=== PATIENT | male | born 1935 | race Caucasian/White ===

== ENCOUNTER 2017-09-18 20:31 | Emergency (ER) | payer MEDICARE, OTHER ==
[~2017-09-18] VITALS: Ht 167.6 cm; Wt 68.0 kg
--- NOTE | 2017-09-18 20:47 | NUR ---
PT PRESENTS TO ER STATING HE HAS NOT HAD A BM IN 3-4 DAYS AND C/O ABD PAIN. DENIES N/V.
--- NOTE | 2017-09-18 21:23 | NUR ---
RADIOLOGY AT BEDSIDE FOR XRAY
--- NOTE | 2017-09-18 22:58 | NUR ---
CALLED RADIOLOGY REGARDING PENDING XRAY RESULTS.
[2017-09-19] MEDS ORDERED: MAGNESIUM CITRATE 296 ML BOTTLE PO ONE
[2017-09-19] MEDS ORDERED: MAGNESIUM CITRATE 296 ML BOTTLE ONE (00:05)
--- NOTE | 2017-09-19 00:18 | NUR ---
Patient discharged to home in stable conditon. Written and verbal after care instructions given. Patient verbalizes understanding of instructions. Taxi service called to provide patient transportation back to his home. No distress noted.
[2017-09-19 00:24] VITALS: BP 138/86
== END 2017-09-19 00:25 | disposition home or self-care (01) ==
LOC: ER 20:34
DX: K59.00 Constipation, unspecified (principal)
CPT/HCPCS: 74022; 99284; A4663

== ENCOUNTER 2017-09-21 14:44 | Emergency (ER) | payer MEDICARE, OTHER ==
[~2017-09-21] VITALS: Ht 167.6 cm; Wt 68.0 kg
[2017-09-21] MEDS ORDERED: DIATR MEGLU/DIATRIZOATE SODIUM 120 ML BOTTLE ONE (15:17)
[2017-09-21 15:24] LABS: BASOPHILS # (AUTO) 0.1 K/uL (0.0-8.0); BASOPHILS % (AUTO) 0.7 % (0.0-2.0); EOSINOPHILS # (AUTO) 0.1 K/uL (0.0-0.7); EOSINOPHILS % (AUTO) 0.7 % (0.0-7.0); HEMATOCRIT 43.7 % (36.7-47.1); HEMOGLOBIN 14.8 g/dL (12.5-16.3); LYMPHOCYTES # (AUTO) 1.6 K/uL (20.0-40.0); LYMPHOCYTES % (AUTO) 15.5 % (20.5-51.5); MEAN CORPUSCULAR HEMOGLOBIN 31.7 uug (23.8-33.4); MEAN CORPUSCULAR HGB CONC 34 g/dL (32.5-36.3); MEAN CORPUSCULAR VOLUME 93.6 fL (73.0-96.2); MONOCYTES # (AUTO) 0.7 K/uL (2.0-10.0); MONOCYTES % (AUTO) 7.1 % (0.0-11.0); NEUTROPHILS # (AUTO) 7.7 K/uL (1.8-8.9); PLATELET COUNT (AUTO) 333 K/uL (152-348); RED BLOOD CELL COUNT(AUTO) 4.67 MIL/uL (4.06-5.63); WHITE BLOOD COUNT (AUTO) 10.1 K/uL (3.6-10.2)
[2017-09-21 15:34] LABS: CARBON DIOXIDE 25 mmol/L (21-32); CHLORIDE 102 mmol/L (98-107); CREATININE 1.1 mg/dL (0.6-1.3); GLUCOSE 98 mg/dL (74-106); POTASSIUM 4.1 mmol/L (3.5-5.1); UREA NITROGEN, BLOOD 17 mg/dL (7-18)
[2017-09-21 15:40] LABS: ALANINE AMINOTRANSFERASE 23 U/L (16-63); ALKALINE PHOSPHATASE 60 U/L (50-136); ASPARTATE AMINOTRANSFERASE 18 U/L (15-37); BILIRUBIN,DIRECT 0.3 mg/dL (0.0-0.2); BILIRUBIN,TOTAL 1.1 mg/dL (0.2-1.0); LIPASE 161 U/L (73-393); TOTAL PROTEIN, SERUM 7.4 g/dL (6.4-8.2)
[2017-09-21] MEDS ORDERED: IOHEXOL 300MG/ML 100 ML INFUS..BTL ONE (15:59)
[2017-09-21] MEDS ORDERED: SWABABLE VALVE TRANSFER SET EA MC ONE (15:59)
[2017-09-21] MEDS ORDERED: NORMAL SALINE FLUSH 10 ML DISP.SYRIN ONE (15:59)
[2017-09-21] MEDS ORDERED: IV NORMAL SALINE 100 ML ONE (15:59)
--- NOTE | 2017-09-21 17:01 | NUR ---
assissted pt to bathroom. pt had bm
--- NOTE | 2017-09-21 17:27 | NUR ---
Patient discharged to home in stable conditon. Written and verbal after care instructions given. Patient verbalizes understanding of instructions.pt walks in steady gait, pt own friend arranged for uber to pick the pt.
[2017-09-21 17:28] VITALS: BP 129/81
== END 2017-09-21 17:29 | disposition home or self-care (01) ==
LOC: ER 14:46
DX: K59.00 Constipation, unspecified (principal)
CPT/HCPCS: 36415; 70030-TC; 83690; 85025; 85730; A4663; J3490; J7030; Q9963; Q9967

== ENCOUNTER 2018-04-22 08:53 | Emergency (ER) | payer MEDICARE, BC, OTHER ==
[~2018-04-22] VITALS: Ht 172.7 cm; Wt 74.8 kg
[2018-04-22] MEDS ORDERED: TRAZ-214 PO (09:12)
[2018-04-22] MEDS ORDERED: ZALE10CA PO (09:12)
[2018-04-22] MEDS ORDERED: ASPI81TA31 PO (09:12)
[2018-04-22 09:21] LABS: BASOPHILS # (AUTO) 0.1 K/uL (0.0-8.0); BASOPHILS % (AUTO) 0.9 % (0.0-2.0); EOSINOPHILS # (AUTO) 0.1 K/uL (0.0-0.7); EOSINOPHILS % (AUTO) 1.5 % (0.0-7.0); HEMATOCRIT 41.2 % (36.7-47.1); LYMPHOCYTES # (AUTO) 1.7 K/uL (20.0-40.0); LYMPHOCYTES % (AUTO) 22.2 % (20.5-51.5); MEAN CORPUSCULAR HEMOGLOBIN 31.6 uug (23.8-33.4); MEAN CORPUSCULAR HGB CONC 34 g/dL (32.5-36.3); MEAN CORPUSCULAR VOLUME 92.8 fL (73.0-96.2); MONOCYTES # (AUTO) 0.9 K/uL (2.0-10.0); MONOCYTES % (AUTO) 12.1 % (0.0-11.0); NEUTROPHILS # (AUTO) 4.8 K/uL (1.8-8.9); NEUTROPHILS % (AUTO) 63.3 % (38.5-71.5); PLATELET COUNT (AUTO) 268 K/uL (152-348); RED BLOOD CELL COUNT(AUTO) 4.44 MIL/uL (4.06-5.63); WHITE BLOOD COUNT (AUTO) 7.6 K/uL (3.6-10.2)
[2018-04-22 09:28] LABS: CARBON DIOXIDE 30 mmol/L (21-32); CHLORIDE 103 mmol/L (98-107); CREATININE 1.1 mg/dL (0.6-1.3); GLUCOSE 105 mg/dL (74-106); POTASSIUM 4.5 mmol/L (3.5-5.1); UREA NITROGEN, BLOOD 15 mg/dL (7-18)
[2018-04-22 09:34] LABS: ALANINE AMINOTRANSFERASE 16 U/L (16-63); ALKALINE PHOSPHATASE 62 U/L (50-136); ASPARTATE AMINOTRANSFERASE 14 U/L (15-37); BILIRUBIN,DIRECT 0.2 mg/dL (0.0-0.2); BILIRUBIN,TOTAL 0.6 mg/dL (0.2-1.0); TOTAL PROTEIN, SERUM 7.4 g/dL (6.4-8.2)
--- NOTE | 2018-04-22 10:37 | NUR ---
Patient discharged to home in stable conditon. Written and verbal after care instructions given. Patient verbalizes understanding of instructions.pt walks in steady gait. pt accompanied by close friend, pt not driving.
[2018-04-22 10:38] VITALS: BP 141/71
== END 2018-04-22 10:39 | disposition home or self-care (01) ==
LOC: ER 08:53
DX: S13.4XXA Sprain of ligaments of cervical spine, initial encounter (principal); S00.01XA Abrasion of scalp, initial encounter; I25.10 Atherosclerotic heart disease of native coronary artery without angina pectoris; I50.9 Heart failure, unspecified; I25.2 Old myocardial infarction; E78.5 Hyperlipidemia, unspecified; F17.200 Nicotine dependence, unspecified, uncomplicated; Z79.82 Long term (current) use of aspirin; Z79.899 Other long term (current) drug therapy; W19.XXXA Unspecified fall, initial encounter; Y93.89 Activity, other specified; Y92.89 Other specified places as the place of occurrence of the external cause; Y99.8 Other external cause status
CPT/HCPCS: 36415; 70030-TC; 70450; 71045; 72125; 84153; 84443; 85025; 85730; 93005; A4663

== ENCOUNTER 2018-07-02 19:36 | Emergency (ER) | payer MEDICARE, OTHER ==
[~2018-07-02] VITALS: Ht 167.6 cm; Wt 68.0 kg
[~2018-07-02 19:36] MED LIST: ASPI81TA31 PO; TRAZ-214 PO; ZALE10CA PO
--- NOTE | 2018-07-02 19:57 | NUR ---
Xray at bedside.
[2018-07-02] MEDS ORDERED: IV NORMAL SALINE 1000 ML BAG IV ONE (20:00)
[2018-07-02 20:12] LABS: BASOPHILS # (AUTO) 0.1 K/uL (0.0-8.0); BASOPHILS % (AUTO) 0.6 % (0.0-2.0); EOSINOPHILS % (AUTO) 0.3 % (0.0-7.0); HEMATOCRIT 43.2 % (36.7-47.1); HEMOGLOBIN 14.7 g/dL (12.5-16.3); LYMPHOCYTES # (AUTO) 0.9 K/uL (20.0-40.0); LYMPHOCYTES % (AUTO) 8.7 % (20.5-51.5); MEAN CORPUSCULAR HEMOGLOBIN 31.1 uug (23.8-33.4); MEAN CORPUSCULAR HGB CONC 34 g/dL (32.5-36.3); MEAN CORPUSCULAR VOLUME 91.3 fL (73.0-96.2); MONOCYTES # (AUTO) 0.6 K/uL (2.0-10.0); MONOCYTES % (AUTO) 5.8 % (0.0-11.0); NEUTROPHILS # (AUTO) 8.7 K/uL (1.8-8.9); NEUTROPHILS % (AUTO) 84.6 % (38.5-71.5); PLATELET COUNT (AUTO) 292 K/uL (152-348); RED BLOOD CELL COUNT(AUTO) 4.73 MIL/uL (4.06-5.63); WHITE BLOOD COUNT (AUTO) 10.3 K/uL (3.6-10.2)
[2018-07-02 20:21] LABS: CARBON DIOXIDE 23 mmol/L (21-32); CHLORIDE 103 mmol/L (98-107); GLUCOSE 126 mg/dL (74-106); UREA NITROGEN, BLOOD 13 mg/dL (7-18)
[2018-07-02 20:27] LABS: ALANINE AMINOTRANSFERASE 29 U/L (16-63); ALKALINE PHOSPHATASE 58 U/L (50-136); ASPARTATE AMINOTRANSFERASE 39 U/L (15-37); BILIRUBIN,DIRECT 0.5 mg/dL (0.0-0.2); BILIRUBIN,TOTAL 1.5 mg/dL (0.2-1.0)
[2018-07-02] MEDS ORDERED: POTASSIUM BICARBONATE/CIT AC 25 MEQ TABLET.EFF PO ONE (20:30)
[2018-07-02] MEDS ORDERED: POTASSIUM BICARBONATE/CIT AC 25 MEQ TABLET.EFF ONE (20:33)
[2018-07-02 20:44] LABS: CREATINE KINASE, TOTAL 757 U/L (39-308)
--- NOTE | 2018-07-02 20:55 | NUR ---
Pt out of ER for CT.
--- NOTE | 2018-07-02 21:05 | NUR ---
Padmaja hicks in ED - 07/02/18 at 2214 by ARACELI Pt back to ER from CT.
[2018-07-02] MEDS ORDERED: LEVETIRACETAM IV 500 MG in IV DEXTROSE 5% 100 ML IV ONE (21:15)
[2018-07-02] MEDS ORDERED: LEVETIRACETAM 500 MG/5 ML VIAL IV ONE (21:18)
--- NOTE | 2018-07-02 21:18 | NUR ---
Pt back to ER from CT.
--- NOTE | 2018-07-02 21:18 | NUR ---
CALLED [facility] SPOKE WITH GREGORY. FAXED FACESHEET AND REPORT OF CT SCAN REQUESTED
--- NOTE | 2018-07-02 22:00 | NUR ---
IV Levetiracetam finished infusing @2200.
--- NOTE | 2018-07-02 22:00 | NUR ---
Dr. Lua spoke with Dr. Munroe, Neurologist.
--- NOTE | 2018-07-02 22:06 | NUR ---
Spoke with Sanjuana of [facility]. Pt accepted for transfer, accepting MD Dr. Anaya, going to room 8849.
--- NOTE | 2018-07-02 22:08 | NUR ---
Called [facility]arda w/ [facility] trip#[id number] ETA [id number] [address] [employer] being dispatched,
--- NOTE | 2018-07-02 22:27 | NUR ---
Report given to August MORGAN [facility].
--- NOTE | 2018-07-02 22:54 | NUR ---
Marleen arrived to ER to transport pt to [facility]. Report, summary, and diagnostics given EMT.
--- NOTE | 2018-07-02 23:06 | NUR ---
Pt out of ER via [facility] to transport pt to [facility]. Report, summary, and diagnostics with EMT.
== END 2018-07-02 23:10 | disposition short-term general hospital (02) ==
LOC: ER 19:36
DX: S06.5X9A Traumatic subdural hemorrhage with loss of consciousness of unspecified duration, initial encounter (principal); I25.10 Atherosclerotic heart disease of native coronary artery without angina pectoris; I25.2 Old myocardial infarction; I50.9 Heart failure, unspecified; E78.5 Hyperlipidemia, unspecified; Z79.82 Long term (current) use of aspirin; Z79.899 Other long term (current) drug therapy; W19.XXXA Unspecified fall, initial encounter; Y93.89 Activity, other specified; Y92.89 Other specified places as the place of occurrence of the external cause; Y99.8 Other external cause status
CPT/HCPCS: 36415; 70450; 71045; 72125; 80048; 80076; 82550; 82962; 83735; 83880; 84484; 85025; 85730; 93005; 96361; 96365; 99291; J1953; J7060; 70030-TC; A4663; J7030

== ENCOUNTER 2018-08-22 19:33 | Emergency (ER) | payer MEDICARE, BC ==
[~2018-08-22] VITALS: Ht 170.2 cm; Wt 54.9 kg
[2018-08-22 20:04] LABS: BASOPHILS # (AUTO) 0.1 K/uL (0.0-8.0); EOSINOPHILS # (AUTO) 0.2 K/uL (0.0-0.7); EOSINOPHILS % (AUTO) 2.6 % (0.0-7.0); HEMATOCRIT 34.9 % (36.7-47.1); HEMOGLOBIN 11.4 g/dL (12.5-16.3); LYMPHOCYTES # (AUTO) 1.7 K/uL (20.0-40.0); LYMPHOCYTES % (AUTO) 18.8 % (20.5-51.5); MEAN CORPUSCULAR HEMOGLOBIN 29.2 uug (23.8-33.4); MEAN CORPUSCULAR HGB CONC 33 g/dL (32.5-36.3); MEAN CORPUSCULAR VOLUME 89.3 fL (73.0-96.2); MONOCYTES # (AUTO) 0.7 K/uL (2.0-10.0); MONOCYTES % (AUTO) 7.9 % (0.0-11.0); NEUTROPHILS # (AUTO) 6.4 K/uL (1.8-8.9); NEUTROPHILS % (AUTO) 69.7 % (38.5-71.5); PLATELET COUNT (AUTO) 347 K/uL (152-348); RED BLOOD CELL COUNT(AUTO) 3.91 MIL/uL (4.06-5.63); WHITE BLOOD COUNT (AUTO) 9.2 K/uL (3.6-10.2)
--- NOTE | 2018-08-22 20:04 | NUR ---
Patient out of unit for ct scan of abdominal via gurny
[2018-08-22 20:11] LABS: CARBON DIOXIDE 30 mmol/L (21-32); CHLORIDE 103 mmol/L (98-107); CREATININE 0.9 mg/dL (0.6-1.3); GLUCOSE 101 mg/dL (74-106); POTASSIUM 3.5 mmol/L (3.5-5.1); UREA NITROGEN, BLOOD 20 mg/dL (7-18)
[2018-08-22 20:17] LABS: ALANINE AMINOTRANSFERASE 23 U/L (16-63); ALKALINE PHOSPHATASE 83 U/L (50-136); ASPARTATE AMINOTRANSFERASE 15 U/L (15-37); BILIRUBIN,DIRECT 0.1 mg/dL (0.0-0.2); BILIRUBIN,TOTAL 0.6 mg/dL (0.2-1.0); LIPASE 140 U/L (73-393); TOTAL PROTEIN, SERUM 7.6 g/dL (6.4-8.2)
--- NOTE | 2018-08-22 20:24 | NUR ---
Patient back from ct scan with no distress noted
[2018-08-22] MEDS ORDERED: LIDOCAINE 2% (UROJET) 10 ML JELLY MM ONE ×2 (20:27→20:30)
[2018-08-22] MEDS ORDERED: FAMO20TA8 PO (20:37)
[2018-08-22] MEDS ORDERED: SPIR25TA6 PO (20:37)
[2018-08-22] MEDS ORDERED: POLY17PO4 PO (20:37)
[2018-08-22] MEDS ORDERED: GABA250S4 PO ×2 (20:37→20:41)
[2018-08-22] MEDS ORDERED: ERGO500040 PO (20:37)
[2018-08-22] MEDS ORDERED: MELA3TAB PO (20:37)
[2018-08-22] MEDS ORDERED: QUET25TA PO ×2 (20:37→20:41)
[2018-08-22] MEDS ORDERED: MEMA10TA PO (20:37)
[2018-08-22] MEDS ORDERED: ATOR40TA PO (20:37)
[2018-08-22] MEDS ORDERED: CARV3.122 PO (20:37)
[2018-08-22] MEDS ORDERED: LOSA25TA3 PO (20:37)
[2018-08-22] MEDS ORDERED: TAMS-3 PO (20:37)
[2018-08-22] MEDS ORDERED: LACO150T2 PO (20:37)
[2018-08-22] MEDS ORDERED: ACET-73 PO (20:41)
[2018-08-22] MEDS ORDERED: GUAI100S9 PO (20:41)
[2018-08-22 20:46] LABS: *BILIRUBIN,URIN NEGATIVE (NEGATIVE); *BLOOD, URINE 2+ (NEGATIVE); *CLARITY,URINE SLIGHTLY CLOUDY (CLEAR); *COLOR,URINE YELLOW (YELLOW); *KETONES,URINE TRACE (NEGATIVE); *UROBILINOGEN,URINE 0.2 E.U./dl (NORMAL); LEUKOCYTE ESTERASE ,URINE 1+ (NEGATIVE); NITRITE, URINE NEGATIVE (NEGATIVE); PH,URINE 5.5 (5.0-8.0); UGLUCOSE NEGATIVE (NEGATIVE)
[2018-08-22 20:54] LABS: WBC,URINE 80-100 /HPF (0-3); YEAST,URINE MODERATE /HPF (NONE SEEN)
[2018-08-22 20:55] LABS: MUCUS,URINE MANY /LPF (0-FEW)
--- NOTE | 2018-08-22 21:15 | NUR ---
Drained 1500ML of dark urine from oviedo cath.
[2018-08-22] MEDS ORDERED: CEFTRIAXONE 1 G in IV DEXTROSE 5% 50 ML IV ONE (21:30)
[2018-08-22] MEDS ORDERED: CEFTRIAXONE 1 G VIAL ONE (21:36)
[2018-08-22] MEDS ORDERED: TRAZODONE 50 MG TABLET PO ONE (22:45)
[2018-08-22] MEDS ORDERED: TRAZODONE 100 MG TABLET ONE (23:04)
--- NOTE | 2018-08-22 23:15 | NUR ---
Pt. transferred from , assumed care of pt.,
[2018-08-23] MEDS ORDERED: IV D5 1/2 NS 1000 ML 1,000 ML IV ONE (00:15)
--- NOTE | 2018-08-23 00:27 | NUR ---
Pt. resting in bed w/ eyes open, bed in low position, bed alarm on, side rails up, IV fluids in fusing w/o difficulty, no s/s infiltration/phlebitis, NAD
--- NOTE | 2018-08-23 01:10 | NUR ---
Pt. manually removed IV catheter from R AC, no significant external hemorrhage, ecchymosis or hematoma noted,
--- NOTE | 2018-08-23 01:11 | NUR ---
discontinued IV fluid order after pt. manually removed IV catheter, IV stop time 0114
--- NOTE | 2018-08-23 01:24 | NUR ---
Pt. resting in bed w/ eyes closed, bed in low position, monitoring from nurse station, bed alarm active, all neds met, NAD
--- NOTE | 2018-08-23 03:20 | NUR ---
1500cc dark yellow urine removed from oviedo,
--- NOTE | 2018-08-23 03:25 | NUR ---
Pt. taken off unit by [employer]. tech. via stretcher for CT,
--- NOTE | 2018-08-23 03:38 | NUR ---
Pt. back from CT,
[2018-08-23] MEDS ORDERED: IV NORMAL SALINE 250 ML BAG IV ONE (05:15)
--- NOTE | 2018-08-23 05:15 | NUR ---
20 gauge IV started on L AC
--- NOTE | 2018-08-23 05:19 | NUR ---
D5 1/2NS restarted per MD order at 100cc/hour,
--- NOTE | 2018-08-23 05:37 | NUR ---
Called [facility] for transfer, faxed face sheet to [phone]
--- NOTE | 2018-08-23 05:38 | NUR ---
IV fluids infusing - no s/s infiltration/phlebitis,
--- NOTE | 2018-08-23 06:43 | NUR ---
Pt. had large loose BM on bedside commode, pt. cleaned/changed/placed in new gown and put back in bed,
--- NOTE | 2018-08-23 07:07 | NUR ---
Report given to Maritza MORGAN,
--- NOTE | 2018-08-23 07:07 | NUR ---
recieved pt in bed, pt refuses to have any bf at this point. pt denies any pain or distress at this point.
[2018-08-23] MEDS ORDERED: MAGNESIUM CITRATE 296 ML BOTTLE ONE (07:12)
[2018-08-23] MEDS ORDERED: MAGNESIUM CITRATE 296 ML BOTTLE PO ONE (07:15)
--- NOTE | 2018-08-23 10:20 | NUR ---
PT TRYING TO SIT AT THE BE, ASSISSTED PT. PT SAYS THAT WANTS TO GO HOME. COMFORT MEASURES PROVIDED. PT REFUSES TO EAT ANYTHING AT THIS TIME. Addendum: 08/23/18 at 1041 by ZOYA PUT THE PT BACK TO BED.
--- NOTE | 2018-08-23 10:41 | NUR ---
PT RESTING, EYES CLOSED AT THIS TIME.
--- NOTE | 2018-08-23 11:50 | NUR ---
I called [facility] transfer center for update. I spoke with Jai who stated the patient has been accepted but they are waiting for a bed to be available. Per Jai they will call us as soon there is a bed available.
--- NOTE | 2018-08-23 12:15 | NUR ---
chopped food provided for pt. pt eating with good apetite. Addendum: 08/23/18 at 1457 by ZOYA pt had a cup of mashed potatoes with some chopped vegetable and chicken.
[2018-08-23] MEDS ORDERED: CEFTRIAXONE 1 G in IV DEXTROSE 5% 50 ML IV ONE (14:00)
[2018-08-23] MEDS ORDERED: CEFTRIAXONE 1 G VIAL ONE (14:34)
[2018-08-23] MEDS ORDERED: LIDOCAINE HCL 1% 20 ML VIAL ONE (14:37)
[2018-08-23] MEDS ORDERED: CEFTRIAXONE 500 MG VIAL IM ONE (15:15)
--- NOTE | 2018-08-23 16:07 | NUR ---
Patient discharged to home via ambulance in stable conditon. Written and verbal after care instructions given. Report was given to patient's facility. Patient verbalizes understanding of instructions.
[2018-08-23 16:08] VITALS: BP 133/71
== END 2018-08-23 16:09 | disposition home or self-care (01) ==
LOC: ER 19:33
DX: N39.0 Urinary tract infection, site not specified (principal); G93.40 Encephalopathy, unspecified; K56.699 Other intestinal obstruction unspecified as to partial versus complete obstruction; R33.9 Retention of urine, unspecified; I25.10 Atherosclerotic heart disease of native coronary artery without angina pectoris; I50.9 Heart failure, unspecified; I25.2 Old myocardial infarction; E78.5 Hyperlipidemia, unspecified; G43.909 Migraine, unspecified, not intractable, without status migrainosus; Z87.891 Personal history of nicotine dependence; Z79.2 Long term (current) use of antibiotics; Z79.899 Other long term (current) drug therapy
CPT/HCPCS: 36415; 51702; 74176 ×2; 80048; 80076; 81000; 81001; 83690; 84484; 85025; 85730; 87086; 87106; 93005; 96372; 96374; 99284; J0696 ×2; J3490 ×2; J7060; 70030-TC; A4663; J7050

== ENCOUNTER 2018-09-02 17:06 | Inpatient (IN) | payer MEDICARE, BC ==
[~2018-09-02] VITALS: Ht 170.2 cm; Wt 58.5 kg
[~2018-09-02 17:06] MED LIST changes: +ACET-73 PO; +ATOR40TA PO; +CARV3.122 PO; +ERGO500040 PO; +FAMO20TA8 PO; +GABA250S4 PO; +GUAI100S9 PO; +LACO150T2 PO; +LOSA25TA3 PO; +MELA3TAB PO; +MEMA10TA PO; +POLY17PO4 PO; +QUET25TA PO; +SPIR25TA6 PO; +TAMS-3 PO
[2018-09-02 17:25] LABS: BASOPHILS % (AUTO) 0.5 % (0.0-2.0); EOSINOPHILS # (AUTO) 0.3 K/uL (0.0-0.7); EOSINOPHILS % (AUTO) 3.3 % (0.0-7.0); HEMATOCRIT 34.2 % (36.7-47.1); HEMOGLOBIN 11.2 g/dL (12.5-16.3); LYMPHOCYTES # (AUTO) 2.3 K/uL (20.0-40.0); LYMPHOCYTES % (AUTO) 27.7 % (20.5-51.5); MEAN CORPUSCULAR HEMOGLOBIN 29.5 uug (23.8-33.4); MEAN CORPUSCULAR HGB CONC 33 g/dL (32.5-36.3); MONOCYTES # (AUTO) 0.7 K/uL (2.0-10.0); NEUTROPHILS # (AUTO) 4.9 K/uL (1.8-8.9); NEUTROPHILS % (AUTO) 59.5 % (38.5-71.5); PLATELET COUNT (AUTO) 343 K/uL (152-348); WHITE BLOOD COUNT (AUTO) 8.1 K/uL (3.6-10.2)
[2018-09-02 17:33] LABS: CARBON DIOXIDE 31 mmol/L (21-32); CHLORIDE 107 mmol/L (98-107); CREATININE 0.9 mg/dL (0.6-1.3); GLUCOSE 111 mg/dL (74-106); POTASSIUM 3.3 mmol/L (3.5-5.1); UREA NITROGEN, BLOOD 15 mg/dL (7-18)
[2018-09-02 17:39] LABS: ALANINE AMINOTRANSFERASE 17 U/L (16-63); ALKALINE PHOSPHATASE 86 U/L (50-136); ASPARTATE AMINOTRANSFERASE 12 U/L (15-37); BILIRUBIN,DIRECT 0.1 mg/dL (0.0-0.2); BILIRUBIN,TOTAL 0.3 mg/dL (0.2-1.0); TOTAL PROTEIN, SERUM 7.1 g/dL (6.4-8.2)
[2018-09-02 17:49] LABS: *BILIRUBIN,URIN NEGATIVE (NEGATIVE); *BLOOD, URINE 2+ (NEGATIVE); *CLARITY,URINE CLOUDY (CLEAR); *COLOR,URINE YELLOW (YELLOW); *KETONES,URINE TRACE (NEGATIVE); *UROBILINOGEN,URINE 0.2 E.U./dl (NORMAL); LEUKOCYTE ESTERASE ,URINE 1+ (NEGATIVE); NITRITE, URINE NEGATIVE (NEGATIVE); PH,URINE 5.5 (5.0-8.0); UGLUCOSE NEGATIVE (NEGATIVE)
[2018-09-02] MEDS ORDERED: NYST15CR TP (17:52)
[2018-09-02] MEDS ORDERED: MULT-213 PO (17:52)
[2018-09-02] MEDS ORDERED: DONE10TA44 PO (17:52)
[2018-09-02] MEDS ORDERED: ACET325T53 PO ×2 (17:52)
[2018-09-02] MEDS ORDERED: TRAZ-182 PO (17:52)
[2018-09-02 18:01] LABS: BACTERIA,URINE MANY /HPF (NONE SEEN); RBC,URINE 20-50 /HPF (0-3); SQUAMOUS EPITHELIAL CELL,UR FEW /HPF (NONE SEEN); WBC,URINE 80-100 /HPF (0-3)
[2018-09-02 18:03] LABS: YEAST,URINE FEW /HPF (NONE SEEN)
[2018-09-02] MEDS ORDERED: CEFTRIAXONE 1 G in IV DEXTROSE 5% 50 ML IV ONE (18:30)
[2018-09-02] MEDS ORDERED: CEFTRIAXONE 1 G VIAL ONE (18:39)
--- NOTE | 2018-09-02 19:07 | NUR ---
ASSUMED CARE OF PATIENT. NO ACUTE DISTRESS NOTED. VSS
--- NOTE | 2018-09-02 19:34 | NUR ---
REPORT GIVEN TO ELSY MORGAN ON MED SURG
--- NOTE | 2018-09-02 20:00 | NUR ---
patient is on the floor. arrived on a gurney from ER. Agitated, delusional, verbally abusive, screaming, persecutory delusions, violent towards staff, kicking, hitting, and biting, pulling on the Mills, tries to remove IV line. Sitter was brought in for safety. Will attempt to assess later.
[2018-09-02] MEDS ORDERED: MORPHINE SULFATE 2 MG/1 ML DISP.SYRIN IV PRN (20:30)
[2018-09-02] MEDS ORDERED: ACETAMINOPHEN 325 MG TABLET PO PRN ×2 (20:30)
[2018-09-02] MEDS ORDERED: ALBUTEROL SULFATE 2.5 MG/3 ML NEBU NEB PRN (20:30)
[2018-09-02] MEDS ORDERED: ONDANSETRON 4 MG/2 ML VIAL IV PRN (20:30)
[2018-09-02] MEDS ORDERED: TAMSULOSIN HCL 0.4 MG CAP.SR.24H PO SCH (21:00)
[2018-09-02] MEDS ORDERED: FLUCONAZOLE 200 MG/NS 100ML IV 100 MG in PREMIXED 1 EACH IV SCH (21:00)
[2018-09-02] MEDS: ZIPRASIDONE MESYLATE 20 MG VIAL IM PRN (21:03)
--- NOTE | 2018-09-02 21:08 | NUR ---
patient continues to be agitated, tamika towards staff, kicking, hitting, and biting the nurses, attempted to pull his Mills 3 times . Geodon 3mg given IM in the right thigh. Sitter is at bedside.
[2018-09-02] MEDS: LACOSAMIDE 50 MG TABLET PO SCH (21:45)
[2018-09-02] MEDS: ATORVASTATIN 40 MG TABLET PO SCH (22:00)
--- NOTE | 2018-09-02 23:00 | NUR ---
patient is more calm and cooperative. Allowed to be placed on monitor and connected to IV. Keppra and Diflucan will be given now.
[2018-09-02] MEDS: DEXTROSE 5% IV SCH (23:06)
[2018-09-02] MEDS: LEVETIRACETAM IV SCH (23:06)
[2018-09-02] MEDS: MELATONIN 3 MG TABLET PO SCH (23:19)
[2018-09-02] MEDS: TRAZODONE 50 MG TABLET PO SCH (23:20)
--- NOTE | 2018-09-02 23:46 | NUR ---
Keppra given IV, patient refuses to take oral meds, Diflucan IV is infusing, sitter at bedside. patient is dozing, no acute distress noted. Comfort and safety provided.
[2018-09-03] MEDS: POTASSIUM CHLORIDE 20 MEQ in IV D5/ 0.9% NACL 1,000 ML IV PRN ×2 (01:52→17:21)
--- NOTE | 2018-09-03 04:00 | NUR ---
patient is sleeping, arouses easily to name, calm, cooperative with care, denies pain. Mills was emptied, 150 ml of dark odorous urine. Sitter at bedside. No seizures were observed.
[2018-09-03 06:41] LABS: BASOPHILS % (AUTO) 0.6 % (0.0-2.0); EOSINOPHILS # (AUTO) 0.2 K/uL (0.0-0.7); EOSINOPHILS % (AUTO) 3.6 % (0.0-7.0); HEMATOCRIT 32.1 % (36.7-47.1); HEMOGLOBIN 10.7 g/dL (12.5-16.3); LYMPHOCYTES # (AUTO) 2.1 K/uL (20.0-40.0); LYMPHOCYTES % (AUTO) 31.8 % (20.5-51.5); MEAN CORPUSCULAR HEMOGLOBIN 29.8 uug (23.8-33.4); MEAN CORPUSCULAR HGB CONC 33 g/dL (32.5-36.3); MEAN CORPUSCULAR VOLUME 89.9 fL (73.0-96.2); MONOCYTES # (AUTO) 0.7 K/uL (2.0-10.0); MONOCYTES % (AUTO) 10.1 % (0.0-11.0); NEUTROPHILS # (AUTO) 3.6 K/uL (1.8-8.9); NEUTROPHILS % (AUTO) 53.9 % (38.5-71.5); PLATELET COUNT (AUTO) 317 K/uL (152-348); RED BLOOD CELL COUNT(AUTO) 3.57 MIL/uL (4.06-5.63); WHITE BLOOD COUNT (AUTO) 6.7 K/uL (3.6-10.2)
[2018-09-03 06:49] LABS: ALANINE AMINOTRANSFERASE 13 U/L (16-63); ALKALINE PHOSPHATASE 76 U/L (50-136); ASPARTATE AMINOTRANSFERASE 13 U/L (15-37); BILIRUBIN,TOTAL 0.3 mg/dL (0.2-1.0); CARBON DIOXIDE 30 mmol/L (21-32); CHLORIDE 109 mmol/L (98-107); CHOLESTEROL 99 mg/dL (<200); CREATININE 0.8 mg/dL (0.6-1.3); GLUCOSE 94 mg/dL (74-106); HDL CHOLESTEROL 38 mg/dL (40-60); MAGNESIUM 1.9 mg/dL (1.8-2.4); POTASSIUM 3.2 mmol/L (3.5-5.1); TOTAL PROTEIN, SERUM 6.4 g/dL (6.4-8.2); TRIGLYCERIDES 63 MG/DL (30-150); UREA NITROGEN, BLOOD 11 mg/dL (7-18)
[2018-09-03 06:51] LABS: THYROID STIMULATING HORMONE 2.297 mIU/mL (0.358-3.740)
--- NOTE | 2018-09-03 06:54 | NUR ---
patient is awake and alert, oriented to person only, suspicious, guarded, easily agitated, denies pain or discomfort. Sitter at bedside. IV is patent, Mills is patent.
[2018-09-03] MEDS: PROTEIN SUPPLEMENT (PROSTAT) 30 ML LIQUID PO SCH (08:30)
[2018-09-03] MEDS ORDERED: POTASSIUM CHLORIDE 20 MEQ TAB.PRT.SR PO ONE (08:30)
[2018-09-03] MEDS: DEXTROSE 5% IV SCH ×2 (08:52→20:37)
[2018-09-03] MEDS: LEVETIRACETAM IV SCH ×2 (08:52→20:37)
[2018-09-03] MEDS: MIRALAX 17 GM POWD.PACK PO SCH (08:55)
[2018-09-03] MEDS: MEMANTINE HCL 10 MG TABLET PO SCH ×2 (08:55→12:51)
[2018-09-03] MEDS: DONEPEZIL 10 MG TABLET PO SCH ×2 (08:55→12:48)
[2018-09-03] MEDS: ASPIRIN 81 MG TAB.CHEW PO SCH ×2 (08:55→12:48)
[2018-09-03] MEDS: TAMSULOSIN HCL 0.4 MG CAP.SR.24H PO SCH ×2 (08:55→17:19)
--- NOTE | 2018-09-03 08:55 | NUR ---
AWAKE IN BED ALERT TO SELF ONLY CONFUSED AND DISORIENTED REFUSED ALL OF HIS ORAL MEDICATIONS UNAWARE THAT HE IS IN THE HOSPITAL ORDERING THE NURSES INCLUDING THIS WRITTER TO GET OUT OF HIS ROOM PATIENT EVEN CALLED THE ED DEPT AND THE STORAGE GARAGE MANAGER SO MANY TIMES STATING THAT THERE ARE PEOPLE IN HIS APARTMENT AND HE WANTS US OUT ATTEMTPS TO EXPLAIN TO THE PATIENT THAT HE IS IN THE HOSPITAL AND WE NEEDED TO ASSIST HIM NEEDED FAILED PATIENT MADE COMFORTABLE IVF IN PROGRESS ORDERED WILL CONTINUE TO OBSERVE.
[2018-09-03] MEDS: FINASTERIDE 5 MG TABLET PO SCH ×2 (08:56→12:51)
[2018-09-03] MEDS: LACOSAMIDE 50 MG TABLET PO SCH ×3 (08:56→21:00)
[2018-09-03] MEDS: FAMOTIDINE 20 MG TABLET PO SCH ×3 (08:56→17:00)
[2018-09-03] MEDS ORDERED: Medication Not On Formulary EA (Multivitamins W-Minerals (Multivitamin With Minerals) 1 PO SCH (09:00)
[2018-09-03 10:54] VITALS: BP 117/75
[2018-09-03] MEDS: ZIPRASIDONE MESYLATE 20 MG VIAL IM PRN (12:07)
--- NOTE | 2018-09-03 12:07 | NUR ---
PATIENT IS AT THIS TIME MORE CONFUSED AGITATED RESTLESS THREATENING TO STRIKE HIS SITTER STILL CONTINUE TO CALL THE HEATING AND REFRIGERATION INSPECTOR AND THE ED DEPT AT [facility] FOR INJURIES UNABLE TO REDIRECT MEDICATED WITH GEODON ORDERED AND WILL CONTINUE TO OBSERVE.
--- NOTE | 2018-09-03 12:48 | NUR ---
PATIENT IS MORE COOPERATIVE NOW ABLE TO GIVE HIM MOST OF THE MEDICATIONS THAT HE REFUSED THIS AM WILL CONTINUE TO OBSERVE.
[2018-09-03] MEDS: NYSTATIN CREAM 30 GM TUBE TP SCH (13:01)
--- NOTE | 2018-09-03 14:19 | NUR ---
POTASSIUM LEVEL IS 3.2 WITH ORDERS GIVEN ORDERED.
[2018-09-03 15:35] VITALS: BP 102/64
[2018-09-03] MEDS ORDERED: ACET-2605 PO (17:20)
--- NOTE | 2018-09-03 17:27 | NUR ---
CALL RECEIVED FROM LAB THAT PATIENT HAS POSITIVE MRSA NARES PAYROLL BENEFITS ADMINISTRATOR PASCHUAL AWARE WITH ORDERS AND NOTED
[2018-09-03] MEDS: CEFTRIAXONE 1 G in IV DEXTROSE 5% 50 ML IV SCH (17:42)
--- NOTE | 2018-09-03 19:01 | NUR ---
DR FRIED PATIENTS SIGNIFICANT OTHER HERE AWARE OF ORDER FOR MRI AND STATED WILL NOT CONSCENT TO IT PATIENT IS UNABLE TO CONSCENT FOR HIMSELF AT THIS TIME.PASCHUAL MANUFACTURING WEAVER AWARE
--- NOTE | 2018-09-03 19:45 | NUR ---
Received patient in bed with sitter at bedside. Patient is confused. No signs of acute distress noted. No complaints of pain or SOB. IVF running on the left forearm. Mills catheter is intact and draining clear yellow urine. Safety measures initiated. Bed is low and locked, call light within reach. Will continue to monitor.
[2018-09-03] MEDS: ATORVASTATIN 40 MG TABLET PO SCH (20:36)
[2018-09-03] MEDS: MELATONIN 3 MG TABLET PO SCH (20:36)
[2018-09-03] MEDS: TRAZODONE 50 MG TABLET PO SCH (20:36)
[2018-09-03] MEDS: MUPIROCIN 2% OINT 22 GM TUBE NS SCH (20:37)
[2018-09-03] MEDS ORDERED: FLUCONAZOLE 200 MG/NS 100ML IV 100 MG in PREMIXED 1 EACH IV SCH (21:00)
[2018-09-03] MEDS ORDERED: MICAFUNGIN SODIUM 100 MG in IV NORMAL SALINE 100 ML IV SCH (21:00)
[2018-09-03 22:13] VITALS: BP 112/58
[2018-09-04] MEDS: ZIPRASIDONE MESYLATE 20 MG VIAL IM PRN ×2 (02:59→13:06)
[2018-09-04 04:00] VITALS: BP 135/75
--- NOTE | 2018-09-04 05:43 | NUR ---
Patient was restless all night. No signs of acute distress noted. No complaints of pain or SOB. Had episodes of agitation with PRN medication given. Sitter is at bedside. IVF running on the left forearm. Medications given as ordered. Safety measures given.
[2018-09-04 06:24] LABS: BASOPHILS % (AUTO) 0.6 % (0.0-2.0); EOSINOPHILS # (AUTO) 0.2 K/uL (0.0-0.7); EOSINOPHILS % (AUTO) 2.9 % (0.0-7.0); HEMOGLOBIN 10.6 g/dL (12.5-16.3); LYMPHOCYTES # (AUTO) 1.6 K/uL (20.0-40.0); LYMPHOCYTES % (AUTO) 21.3 % (20.5-51.5); MEAN CORPUSCULAR HEMOGLOBIN 29.9 uug (23.8-33.4); MEAN CORPUSCULAR HGB CONC 33 g/dL (32.5-36.3); MEAN CORPUSCULAR VOLUME 89.8 fL (73.0-96.2); MONOCYTES # (AUTO) 0.7 K/uL (2.0-10.0); NEUTROPHILS # (AUTO) 4.8 K/uL (1.8-8.9); NEUTROPHILS % (AUTO) 66.2 % (38.5-71.5); PLATELET COUNT (AUTO) 299 K/uL (152-348); RED BLOOD CELL COUNT(AUTO) 3.56 MIL/uL (4.06-5.63); WHITE BLOOD COUNT (AUTO) 7.3 K/uL (3.6-10.2)
[2018-09-04 06:54] LABS: ALANINE AMINOTRANSFERASE 15 U/L (16-63); ALKALINE PHOSPHATASE 81 U/L (50-136); ASPARTATE AMINOTRANSFERASE 15 U/L (15-37); BILIRUBIN,TOTAL 0.4 mg/dL (0.2-1.0); CARBON DIOXIDE 29 mmol/L (21-32); CHLORIDE 111 mmol/L (98-107); CREATININE 0.8 mg/dL (0.6-1.3); GLUCOSE 117 mg/dL (74-106); MAGNESIUM 1.8 mg/dL (1.8-2.4); PHOSPHOROUS 2.8 mg/dL (2.5-4.9); POTASSIUM 4.5 mmol/L (3.5-5.1); TOTAL PROTEIN, SERUM 6.6 g/dL (6.4-8.2); UREA NITROGEN, BLOOD 7 mg/dL (7-18)
--- NOTE | 2018-09-04 07:30 | NUR ---
AWAKE ALERT BUT IS CONFUSED AND DISORIENTED AT THIS TIME REQUIRES CONSTANT REDIRECTION HAS A SITTER FOR SAFETY REMAIN ON IVF ORDERED WITH NO S/S OF INFILTERATION ON SITE HAS A ONE ON ONE SITTER FOR SAFETY RELATED TO CONFUSSION AND POOR SAFETY AWARENESS WILL CONTINUE TO OBSERVE AND PROVIDE SAFE AND THERAPEUTIC ENVIRONMENT AT ALL TIMES.
[2018-09-04] MEDS: TAMSULOSIN HCL 0.4 MG CAP.SR.24H PO SCH ×2 (08:46→16:47)
[2018-09-04] MEDS: LACOSAMIDE 50 MG TABLET PO SCH ×2 (08:46→20:44)
[2018-09-04] MEDS: FINASTERIDE 5 MG TABLET PO SCH (08:47)
[2018-09-04] MEDS: DONEPEZIL 10 MG TABLET PO SCH (08:47)
[2018-09-04] MEDS: MEMANTINE HCL 10 MG TABLET PO SCH (08:47)
[2018-09-04 08:48] VITALS: BP 144/54
[2018-09-04] MEDS: FAMOTIDINE 20 MG TABLET PO SCH ×2 (08:49→16:47)
[2018-09-04] MEDS: PROTEIN SUPPLEMENT (PROSTAT) 30 ML LIQUID PO SCH (08:49)
[2018-09-04] MEDS: POTASSIUM CHLORIDE 20 MEQ in IV D5/ 0.9% NACL 1,000 ML IV PRN (08:49)
[2018-09-04] MEDS: DEXTROSE 5% IV SCH ×2 (08:49→20:51)
[2018-09-04] MEDS: LEVETIRACETAM IV SCH ×2 (08:49→20:51)
[2018-09-04] MEDS: MIRALAX 17 GM POWD.PACK PO SCH (08:50)
[2018-09-04] MEDS: MUPIROCIN 2% OINT 22 GM TUBE NS SCH ×2 (08:50→20:45)
[2018-09-04] MEDS: NYSTATIN CREAM 30 GM TUBE TP SCH (08:50)
--- NOTE | 2018-09-04 09:27 | NUR ---
MRI APPPROVED BY SHERIE MITCHELL, CALLED FLOOR AM PER NURSE MRI CANCELED,
--- NOTE | 2018-09-04 09:51 | NUR ---
DR DUKE NEUROLOGY HERE TO SEE PATIENT WITH NO NEW ORDERS AT THIS TIME
[2018-09-04 11:56] VITALS: BP 113/63
[2018-09-04] MEDS: GUAIFENESIN/DEXTROMETHORPHAN 5 ML UDC PO PRN ×2 (12:53→23:53)
--- NOTE | 2018-09-04 13:07 | NUR ---
PATIENT IS CONFUSED AND DISORIENTED VERY AGITATED AND RESTLESS SITTING AT THE EDGE OF THE CHAIR REFUSING TO SIT BACK INTO THE CHAIR VERBALLY ABUSIVE STATED MUST LEAVE BECAUSE HIS FLIGHT IS ABOUT TO LEAVE THE AIRPORT UNABLE TO REDIRECT VERY LOUD AT [facility] FOR FALL AND INJURIES RELATED TO CONFUSSION AND POOR SAFETY AWARENESS PATIENT MEDICATED WITH GEODON ORDERED AT THIS TIME WILL CONTINUE TO OBSERVE.
--- NOTE | 2018-09-04 13:45 | NUR ---
JENI BURNHAM HERE AWARE OF THE RESTLESSNESS AND AGITATION STATED WILL CALL THE PSYCH DOCTOR TO EVALUATE PATIENT.
--- NOTE | 2018-09-04 16:34 | NUR ---
DR NORRIS PSYCH HERE TO SEE PATIENT WITH NEW ORDERS AND NOTED
[2018-09-04 16:49] VITALS: BP 136/65
[2018-09-04] MEDS: CEFTRIAXONE 1 G in IV DEXTROSE 5% 50 ML IV SCH (17:05)
--- NOTE | 2018-09-04 18:00 | NUR ---
PATIENT IS CALMER AT THIS TIME BUT STILL CONFUSED BUT PLEASANT REMAIN ON IVF ORDERED MADE COMFORTABLE WITH ONE ON ONE SITTER FOR SAFETY.
--- NOTE | 2018-09-04 19:45 | NUR ---
Received patient in bed, restless, but calm. No signs of acute distress noted. 1:1 sitter for safety. No complaints of pain or SOB. IVF running on the left forearm. Mills catheter is intact and patent. Safety measures initiated. Bed is low and locked, call light within reach, bed alarm on, side rails up x3. Will continue to monitor.
[2018-09-04] MEDS: ATORVASTATIN 40 MG TABLET PO SCH (20:44)
[2018-09-04] MEDS: MELATONIN 3 MG TABLET PO SCH (20:44)
[2018-09-04] MEDS: TRAZODONE 50 MG TABLET PO SCH (20:45)
[2018-09-04] MEDS: OLANZAPINE ZYDIS 5 MG TAB.RAPDIS PO SCH (20:45)
[2018-09-04 20:54] VITALS: BP 151/58
[2018-09-04] MEDS ORDERED: LEVETIRACETAM 250 MG TABLET PO SCH (21:00)
[2018-09-05] VITALS: BP 145/65
[2018-09-05] MEDS: POTASSIUM CHLORIDE 20 MEQ in IV D5/ 0.9% NACL 1,000 ML IV PRN ×2 (03:37→21:11)
[2018-09-05 04:00] VITALS: BP 132/75
--- NOTE | 2018-09-05 05:46 | NUR ---
Patient slept well throughout night with 1:1 sitter at bedside. No signs of acute distress noted. No complaints of pain or SOB. Started patient on Zyprexa 2.5mg Q12H. All medications given as ordered and tolerated well. IVF running on the left forearm, no s/s of infection or infiltration. Mills catheter intact. Safety measures given.
--- NOTE | 2018-09-05 07:25 | NUR ---
PATIENT IS AWAKE ALERT STILL DISORIENTED BUT IS REDIRECTABLE AT THIS TIME DENIES PAIN OR DISCOMFORTS REMAIN ON IVF ORDERED WITH NO S/S OF INFILTERATION ON SITE REMAIN ON ATB WITH NO ADVERSE OR ALLERGIC REACTIONS AT THIS TIME PATIENT HAS A ONE ON ONE SITTER FOR SAFETY DUE TO POOR SAFETY AWARENESS MADE COMFORTABLE AND WILL CONTINUE TO OBSERVE.
[2018-09-05 07:31] LABS: ALANINE AMINOTRANSFERASE 12 U/L (16-63); ALKALINE PHOSPHATASE 66 U/L (50-136); ASPARTATE AMINOTRANSFERASE 10 U/L (15-37); BILIRUBIN,TOTAL 0.4 mg/dL (0.2-1.0); CARBON DIOXIDE 26 mmol/L (21-32); CHLORIDE 113 mmol/L (98-107); CREATININE 0.9 mg/dL (0.6-1.3); GLUCOSE 102 mg/dL (74-106); MAGNESIUM 1.7 mg/dL (1.8-2.4); POTASSIUM 3.5 mmol/L (3.5-5.1); TOTAL PROTEIN, SERUM 5.9 g/dL (6.4-8.2); UREA NITROGEN, BLOOD 4 mg/dL (7-18)
[2018-09-05] MEDS: LACOSAMIDE 50 MG TABLET PO SCH ×2 (09:27→21:05)
[2018-09-05] MEDS: DONEPEZIL 10 MG TABLET PO SCH (09:27)
[2018-09-05] MEDS: LEVETIRACETAM 250 MG TABLET PO SCH ×2 (09:27→21:05)
[2018-09-05] MEDS: OLANZAPINE ZYDIS 5 MG TAB.RAPDIS PO SCH ×2 (09:27→21:05)
[2018-09-05] MEDS: FAMOTIDINE 20 MG TABLET PO SCH ×2 (09:28→16:31)
[2018-09-05] MEDS: TAMSULOSIN HCL 0.4 MG CAP.SR.24H PO SCH ×2 (09:28→16:31)
[2018-09-05] MEDS: MIRALAX 17 GM POWD.PACK PO SCH (09:28)
[2018-09-05] MEDS: ERGOCALCIFEROL 50,000 UNIT CAPSULE PO SCH (09:28)
[2018-09-05] MEDS: MEMANTINE HCL 10 MG TABLET PO SCH (09:28)
[2018-09-05] MEDS: FINASTERIDE 5 MG TABLET PO SCH (09:29)
[2018-09-05] MEDS: MUPIROCIN 2% OINT 22 GM TUBE NS SCH ×2 (09:34→21:04)
[2018-09-05] MEDS: NYSTATIN CREAM 30 GM TUBE TP SCH (09:34)
[2018-09-05] MEDS: PROTEIN SUPPLEMENT (PROSTAT) 30 ML LIQUID PO SCH (09:35)
[2018-09-05] MEDS: MAGNESIUM SULFATE/D5W 100 ML IV SCH ×2 (09:47→10:56)
--- NOTE | 2018-09-05 11:00 | NUR ---
MAG LEVEL IS 1.7 WITH NEW ORDER FOR MAG REPLACEMENT BY JENI BURNHAM AND NOTED.
[2018-09-05 11:30] VITALS: BP 141/67
[2018-09-05 15:12] VITALS: BP 133/63
[2018-09-05] MEDS: ZIPRASIDONE MESYLATE 20 MG VIAL IM PRN (16:41)
--- NOTE | 2018-09-05 16:41 | NUR ---
PATIENT IS BERY CONFUSED AGITATED RESTLESS AGGRESSIVE COMBATIVE PULLED OUT HIS HEPLOCK AND PULLING ON HIS FARFAN CATH UNABLE TO REDIRECT PATIENT MEDICATED WITH GEODON AND ORDERED MADE COMFORTABLE AND WILL CONTINUE TO OBSERVE
[2018-09-05] MEDS: CEFTRIAXONE 1 G in IV DEXTROSE 5% 50 ML IV SCH (17:26)
--- NOTE | 2018-09-05 17:49 | NUR ---
HEPLOCK REINSERTED TO HIS LEFT WRIST WITH GAUGE 20 AND WRAPPED WITH KIRLIX PATIENT IS QUIET NOW AROUSES EASILY BUT IS SOMEWHAT SLEEPING CONTINUE ON HIS IV ATB ORDERED WITH NO ADVERSE OR ALLERGIC REACTIONS AT THIS TIME.WILL CONTINUE TO PROVIDE SAFETY AND THERAPEUTIC ENVIRONMENT AT ALL TIMES.
[2018-09-05 20:00] VITALS: BP 107/80
[2018-09-05] MEDS: TRAZODONE 50 MG TABLET PO SCH (21:05)
[2018-09-05] MEDS: MELATONIN 3 MG TABLET PO SCH (21:05)
[2018-09-05] MEDS: ATORVASTATIN 40 MG TABLET PO SCH (21:06)
[2018-09-06] VITALS: BP 115/80
[2018-09-06 04:00] VITALS: BP 118/72
[2018-09-06 07:04] LABS: ALANINE AMINOTRANSFERASE 16 U/L (16-63); ALKALINE PHOSPHATASE 84 U/L (50-136); ASPARTATE AMINOTRANSFERASE 14 U/L (15-37); BILIRUBIN,TOTAL 0.4 mg/dL (0.2-1.0); CARBON DIOXIDE 30 mmol/L (21-32); CHLORIDE 110 mmol/L (98-107); CREATININE 0.8 mg/dL (0.6-1.3); GLUCOSE 97 mg/dL (74-106); MAGNESIUM 2.1 mg/dL (1.8-2.4); PHOSPHOROUS 3.1 mg/dL (2.5-4.9); POTASSIUM 3.4 mmol/L (3.5-5.1); TOTAL PROTEIN, SERUM 6.4 g/dL (6.4-8.2); UREA NITROGEN, BLOOD 3 mg/dL (7-18)
--- NOTE | 2018-09-06 07:29 | NUR ---
Patient rested well in between care; no acute distress; took meds by mouth with assistance; pt has periods of confusion but redirectable; needs attended; sitter at bedside; safety maintained.
[2018-09-06] MEDS: MEMANTINE HCL 10 MG TABLET PO SCH (08:21)
[2018-09-06] MEDS: FAMOTIDINE 20 MG TABLET PO SCH ×2 (08:21→17:35)
[2018-09-06] MEDS: LEVETIRACETAM 250 MG TABLET PO SCH ×2 (08:21→21:12)
[2018-09-06] MEDS: LACOSAMIDE 50 MG TABLET PO SCH ×2 (08:21→20:40)
[2018-09-06] MEDS: TAMSULOSIN HCL 0.4 MG CAP.SR.24H PO SCH ×2 (08:21→17:35)
[2018-09-06] MEDS: FINASTERIDE 5 MG TABLET PO SCH (08:21)
[2018-09-06] MEDS: DONEPEZIL 10 MG TABLET PO SCH (08:21)
[2018-09-06] MEDS: MIRALAX 17 GM POWD.PACK PO SCH (08:21)
[2018-09-06] MEDS: PROTEIN SUPPLEMENT (PROSTAT) 30 ML LIQUID PO SCH (08:22)
[2018-09-06] MEDS: MUPIROCIN 2% OINT 22 GM TUBE NS SCH ×2 (08:22→21:12)
[2018-09-06] MEDS: OLANZAPINE ZYDIS 5 MG TAB.RAPDIS PO SCH ×2 (08:22→20:41)
[2018-09-06] MEDS: NYSTATIN CREAM 30 GM TUBE TP SCH (08:23)
[2018-09-06 08:30] VITALS: BP 127/65
[2018-09-06 11:09] VITALS: BP 119/62
[2018-09-06] MEDS ORDERED: POTASSIUM CHLORIDE 20 MEQ TAB.PRT.SR PO ONE (14:00)
[2018-09-06] MEDS: QUETIAPINE FUMARATE 25 MG TABLET PO PRN (14:34)
[2018-09-06] MEDS: POTASSIUM CHLORIDE 20 MEQ in IV D5/ 0.9% NACL 1,000 ML IV PRN (14:45)
[2018-09-06 15:05] VITALS: BP 110/57
[2018-09-06] MEDS: CEFTRIAXONE 1 G in IV DEXTROSE 5% 50 ML IV SCH (17:35)
[2018-09-06] MEDS: TRAZODONE 50 MG TABLET PO SCH (20:41)
[2018-09-06] MEDS: MELATONIN 3 MG TABLET PO SCH (20:41)
[2018-09-06 20:58] VITALS: BP 119/76
[2018-09-06] MEDS: ATORVASTATIN 40 MG TABLET PO SCH (21:12)
[2018-09-06 21:35] LABS: *BILIRUBIN,URIN NEGATIVE (NEGATIVE); *BLOOD, URINE 2+ (NEGATIVE); *CLARITY,URINE CLOUDY (CLEAR); *COLOR,URINE YELLOW (YELLOW); *KETONES,URINE NEGATIVE (NEGATIVE); *UROBILINOGEN,URINE 0.2 E.U./dl (NORMAL); LEUKOCYTE ESTERASE ,URINE 2+ (NEGATIVE); NITRITE, URINE NEGATIVE (NEGATIVE); PH,URINE 5.5 (5.0-8.0); UGLUCOSE NEGATIVE (NEGATIVE)
[2018-09-06 21:42] LABS: BACTERIA,URINE FEW /HPF (NONE SEEN); MUCUS,URINE MANY /LPF (0-FEW); RBC,URINE 20-50 /HPF (0-3); WBC,URINE 80-100 /HPF (0-3)
--- NOTE | 2018-09-07 00:06 | NUR ---
Patient is very agitated and paranoid; pt stated, "look for the box before they kill me"; geodon 3 mg admisterered IM; continue to monitor. remains with sitter at bedside.
[2018-09-07 00:35] VITALS: BP 126/76
--- NOTE | 2018-09-07 05:11 | NUR ---
Patient rested in between care; sitter at bedside; rested after getting his geodon shot; safety maintained; continue to monitor; continue plan of care.
[2018-09-07 05:15] VITALS: BP 140/64
[2018-09-07] MEDS: POTASSIUM CHLORIDE 20 MEQ in IV D5/ 0.9% NACL 1,000 ML IV PRN ×2 (05:48→22:17)
[2018-09-07 06:23] LABS: BASOPHILS # (AUTO) 0.1 K/uL (0.0-8.0); BASOPHILS % (AUTO) 0.8 % (0.0-2.0); EOSINOPHILS # (AUTO) 0.3 K/uL (0.0-0.7); EOSINOPHILS % (AUTO) 4.4 % (0.0-7.0); HEMATOCRIT 30.1 % (36.7-47.1); LYMPHOCYTES # (AUTO) 1.9 K/uL (20.0-40.0); LYMPHOCYTES % (AUTO) 29.7 % (20.5-51.5); MEAN CORPUSCULAR HEMOGLOBIN 30.3 uug (23.8-33.4); MEAN CORPUSCULAR HGB CONC 33 g/dL (32.5-36.3); MEAN CORPUSCULAR VOLUME 91.1 fL (73.0-96.2); MONOCYTES # (AUTO) 0.6 K/uL (2.0-10.0); MONOCYTES % (AUTO) 10.4 % (0.0-11.0); NEUTROPHILS # (AUTO) 3.4 K/uL (1.8-8.9); NEUTROPHILS % (AUTO) 54.7 % (38.5-71.5); PLATELET COUNT (AUTO) 246 K/uL (152-348); WHITE BLOOD COUNT (AUTO) 6.2 K/uL (3.6-10.2)
[2018-09-07 06:30] LABS: CARBON DIOXIDE 29 mmol/L (21-32); CHLORIDE 110 mmol/L (98-107); CREATININE 0.9 mg/dL (0.6-1.3); GLUCOSE 86 mg/dL (74-106); POTASSIUM 3.7 mmol/L (3.5-5.1); UREA NITROGEN, BLOOD 9 mg/dL (7-18)
[2018-09-07] MEDS: PROTEIN SUPPLEMENT (PROSTAT) 30 ML LIQUID PO SCH (08:00)
--- NOTE | 2018-09-07 08:00 | NUR ---
RECEIVED PATIENT ON BED, HOB UP. NO DISTRESS NOTED. SLEEPING COMFORTABLE. SITTER AT BEDSIDE FOR SAFETY.
[2018-09-07] MEDS: OLANZAPINE ZYDIS 5 MG TAB.RAPDIS PO SCH ×2 (09:07→20:57)
[2018-09-07] MEDS: FINASTERIDE 5 MG TABLET PO SCH (09:07)
[2018-09-07] MEDS: TAMSULOSIN HCL 0.4 MG CAP.SR.24H PO SCH ×2 (09:08→16:04)
[2018-09-07] MEDS: FAMOTIDINE 20 MG TABLET PO SCH ×2 (09:08→16:04)
[2018-09-07] MEDS: DONEPEZIL 10 MG TABLET PO SCH (09:08)
[2018-09-07] MEDS: LEVETIRACETAM 250 MG TABLET PO SCH ×2 (09:08→20:57)
[2018-09-07] MEDS: MEMANTINE HCL 10 MG TABLET PO SCH (09:08)
[2018-09-07] MEDS: LACOSAMIDE 50 MG TABLET PO SCH ×2 (09:08→20:59)
[2018-09-07] MEDS: MIRALAX 17 GM POWD.PACK PO SCH (09:09)
[2018-09-07] MEDS: QUETIAPINE FUMARATE 25 MG TABLET PO PRN (09:15)
[2018-09-07] MEDS: MUPIROCIN 2% OINT 22 GM TUBE NS SCH ×2 (09:23→20:56)
--- NOTE | 2018-09-07 09:23 | NUR ---
PATIENT UPSET, WANTS TO GO OUT FOR 45 MINUTES TO DELIVER A MEDICINE TO A FRIEND AND WILL BE BACK AFTERWARDS. DISCUSSED SAFETY AND PLAN OF CARE, STARTED SCREAMING, DEMANDING TO LEAVE AND WILL RETURN LATER. TOOK AM MEDS AND MEDICATED WITH SEROQUEL FOR NOW.
--- NOTE | 2018-09-07 10:00 | NUR ---
FRIEND AT BEDSIDE, SUPPORTIVE OF PATIENT. ABLE TO ENCOURAGE PATIENT TO EAT AND CALM DOWN. WILL CONTINUE TO MONITOR SAFETY AND BEHAVIOR.
--- NOTE | 2018-09-07 10:15 | NUR ---
calmer, effective seroquel
[2018-09-07] MEDS: ZIPRASIDONE MESYLATE 20 MG VIAL IM PRN ×2 (16:07)
--- NOTE | 2018-09-07 16:13 | NUR ---
patient very upset, loud, kicking . unable to calm down. med with roldan as ordered. matthew sitter at bedside. Addendum: 09/07/18 at 1627 by WALESKA MARRERO RN safety and fall risk reinforced Addendum: 09/07/18 at 1631 by WALESKA MARRERO RN given left deltoid while patient spitting on staff.
[2018-09-07] MEDS: CEFTRIAXONE 1 G in IV DEXTROSE 5% 50 ML IV SCH (17:27)
--- NOTE | 2018-09-07 20:00 | NUR ---
RECEIVED PATIENT AWAKE AND SITTING UP IN BED. PATIENT IS ALERT AND ORIENTED X1 WHICH IS DUE TO DIAGNOSIS OF WORSENING DEMENTIA. PATIENT IS WITH 1:1 SITTER. ALL SAFETY AND FALL PRECAUTION MEASURES ARE IN PLACE. PATIENT PREVIOUSLY REMOVED HIS TELE MONITOR DURING PREVIOUS SHIFT BUT WE REAPPLIED AT BEGINNING OF PM SHIFT AND IT REMAINS IN PLACE AT THIS TIME. CALL LIGHT AND PERSONAL ITEMS ARE WITHIN REACH AT ALL TIMES. WILL CONTINUE TO MONITOR.
[2018-09-07 20:05] VITALS: BP 130/80
[2018-09-07] MEDS: ATORVASTATIN 40 MG TABLET PO SCH (20:57)
[2018-09-07] MEDS: TRAZODONE 50 MG TABLET PO SCH (20:57)
[2018-09-07] MEDS: MELATONIN 3 MG TABLET PO SCH (20:58)
[2018-09-08] VITALS (7 sets, daily range): BP systolic 101–139; BP diastolic 62–76
[2018-09-08] MEDS: QUETIAPINE FUMARATE 25 MG TABLET PO PRN (00:31)
[2018-09-08] MEDS: ZIPRASIDONE MESYLATE 20 MG VIAL IM PRN (01:04)
--- NOTE | 2018-09-08 06:00 | NUR ---
PATIENT SLEPT INTERMITTENTLY THROUGHOUT NIGHT. ONLY ONE INCIDENT OF AGITATION AND NON-COOPERATION OF CARE OCCURRED. REDIRECTION, CALM ENVIRONMENT, AND DEESCALATION WERE NOT EFFECTIVE. PATIENT WAS PROVIDED PRN SEROQUEL AT 0030 AND PRN GEODON AT 0100, WHICH WAS EFFECTIVE IN HELPING PATIENT BECOME MORE CALM AND COMPLIANT WITH CARE. ALL NURSING NEEDS WERE MET PROMPTLY BY 1:1 SITTER AND NURSE. ALL SAFETY, FALL, AND ISOLATION PRECAUTIONS REMAIN IN PLACE. CALL LIGHT AND PERSONAL ITEMS REMAIN WITHIN REACH. WILL PROVIDE REPORT TO ONCOMING SHIFT.
[2018-09-08 06:57] LABS: BASOPHILS % (AUTO) 0.7 % (0.0-2.0); EOSINOPHILS # (AUTO) 0.3 K/uL (0.0-0.7); EOSINOPHILS % (AUTO) 4.3 % (0.0-7.0); HEMATOCRIT 33.2 % (36.7-47.1); LYMPHOCYTES # (AUTO) 1.8 K/uL (20.0-40.0); LYMPHOCYTES % (AUTO) 26.8 % (20.5-51.5); MEAN CORPUSCULAR HEMOGLOBIN 29.9 uug (23.8-33.4); MEAN CORPUSCULAR HGB CONC 33 g/dL (32.5-36.3); MEAN CORPUSCULAR VOLUME 90.5 fL (73.0-96.2); MONOCYTES # (AUTO) 0.7 K/uL (2.0-10.0); MONOCYTES % (AUTO) 10.4 % (0.0-11.0); NEUTROPHILS # (AUTO) 3.9 K/uL (1.8-8.9); NEUTROPHILS % (AUTO) 57.8 % (38.5-71.5); PLATELET COUNT (AUTO) 289 K/uL (152-348); RED BLOOD CELL COUNT(AUTO) 3.67 MIL/uL (4.06-5.63); WHITE BLOOD COUNT (AUTO) 6.7 K/uL (3.6-10.2)
--- NOTE | 2018-09-08 07:20 | NUR ---
RECEIVED PATIENT IN BED AWAKE ALERT TO SELF CALM AT THIS TIME ON ROOM AIR WITH NO SOB REMAIN ON IVF ORDERED WITH NO S/S OF INFILTERATION ON SITE HAS AN INDWELLING FARFAN TO GRAVITY DRAINGE WITH NO HEMATURIA AT THIS TIME MADE COMFORTABLE HAS A ONE ON ONE SITTER FOR SAFETY WILL CONTINUE TO OBSERVE AND PROVIDE SAFE AND THERPEUTIC ENVIRONMENT AT ALL TIMES.
[2018-09-08 07:24] LABS: CARBON DIOXIDE 29 mmol/L (21-32); CHLORIDE 110 mmol/L (98-107); CREATININE 0.9 mg/dL (0.6-1.3); GLUCOSE 97 mg/dL (74-106); MAGNESIUM 1.8 mg/dL (1.8-2.4); PHOSPHOROUS 2.8 mg/dL (2.5-4.9); POTASSIUM 3.8 mmol/L (3.5-5.1); UREA NITROGEN, BLOOD 7 mg/dL (7-18)
[2018-09-08] MEDS: TAMSULOSIN HCL 0.4 MG CAP.SR.24H PO SCH ×2 (08:10→16:19)
[2018-09-08] MEDS: LACOSAMIDE 50 MG TABLET PO SCH ×2 (08:10→20:47)
[2018-09-08] MEDS: FINASTERIDE 5 MG TABLET PO SCH (08:10)
[2018-09-08] MEDS: LEVETIRACETAM 250 MG TABLET PO SCH ×2 (08:10→20:47)
[2018-09-08] MEDS: DONEPEZIL 10 MG TABLET PO SCH (08:10)
[2018-09-08] MEDS: PROTEIN SUPPLEMENT (PROSTAT) 30 ML LIQUID PO SCH (08:11)
[2018-09-08] MEDS: FAMOTIDINE 20 MG TABLET PO SCH ×2 (08:11→16:44)
[2018-09-08] MEDS: MIRALAX 17 GM POWD.PACK PO SCH (08:11)
[2018-09-08] MEDS: MEMANTINE HCL 10 MG TABLET PO SCH (08:11)
[2018-09-08] MEDS: OLANZAPINE ZYDIS 5 MG TAB.RAPDIS PO SCH ×2 (08:11→20:47)
[2018-09-08] MEDS: MUPIROCIN 2% OINT 22 GM TUBE NS SCH ×2 (09:09→20:49)
--- NOTE | 2018-09-08 11:36 | NUR ---
FARFAN CATH REMOVED PER JENI WITH ABOUT 900 ML IN BAG WILL OBSERVE PATIENT FOR VOIDING.
[2018-09-08] MEDS: POTASSIUM CHLORIDE 20 MEQ in IV D5/ 0.9% NACL 1,000 ML IV PRN (14:18)
[2018-09-08] MEDS: GUAIFENESIN/DEXTROMETHORPHAN 5 ML UDC PO PRN (14:48)
[2018-09-08] MEDS ORDERED: OLANZAPINE 5 MG TABLET PO ONE (16:15)
[2018-09-08] MEDS: CEFTRIAXONE 1 G in IV DEXTROSE 5% 50 ML IV SCH (17:04)
--- NOTE | 2018-09-08 18:00 | NUR ---
PER THE SITTER PATIENT VOIDED IN THE TOILET BUT WAS NOT ABLE TO MEASURE HE IS AGITATED PULLED OUT HIS HEPLOCK UNABLE TO REINSERT AT THE MOMENT BECAUSE HE IS RESISTING AND NOT COOPERATING AT THE MOMENT WILL ATTEMPT LATER SOON PATIENT IS CALMER.
--- NOTE | 2018-09-08 18:30 | NUR ---
IV SITE REINSERTED LEFT FOREARM GAUGE 20 WRAPPED WITH KIRLIX AND IVF CONTINUED ORDERED.
--- NOTE | 2018-09-08 20:00 | NUR ---
Received pt. resting in bed alert oriented to name. Pt. is calm and cooperative. Pt. has IV in L forearm 20 gauge, intact, patent, running fluids and wrapped in kerlix due to pt. pulling out previous line during AM shift. 1:1 sitter for safety. Safety measures in place. Call light within reach. [facility] continue to monitor.
[2018-09-08] MEDS: ATORVASTATIN 40 MG TABLET PO SCH (20:47)
[2018-09-08] MEDS: MELATONIN 3 MG TABLET PO SCH (20:55)
[2018-09-08] MEDS: TRAZODONE 50 MG TABLET PO SCH (21:00)
--- NOTE | 2018-09-08 22:00 | NUR ---
BP 115/69 HR 73. Gave pt. 2100 medications including new order of zyprexa PO waited an hour to give Desyrel. Did not give prescribed medication Desyrel due to BP low after rechecking in an hour. BP 95/52 HR 60. Will monitor pt.
--- NOTE | 2018-09-08 22:32 | NUR ---
Barcode of melatonin 3 mg did not scan. Charge nurse aware. Manually entered bar code.
[2018-09-09] VITALS (7 sets, daily range): BP systolic 95–124; BP diastolic 52–81
--- NOTE | 2018-09-09 02:15 | NUR ---
Pt. has been sleeping throughout night. Sitter at bedside reported pt. having 5 second seizure. I came to pt.'s room and witnessed pt. having another 5 second seizure. Vitals checked. BP 117/59 HR 62 O2 97%. Charge nurse aware. Pt. responsive and awake after seizure. Pt. states he feels okay. Seizure precautions in place, bed rails padded, bed locked in lowest position. Germán Dent COMPUTER ASSEMBLER notified. No further orders given. To continue monitoring pt. and to call again if pt. has another seizure.
--- NOTE | 2018-09-09 03:25 | NUR ---
CYDNEY Duong notified me pt. is having 6-7 second shaking of upper body. Assessed pt. and witnessed pt. upper body shaking arms trembling. Pt. is awake, alert, and responsive pt. states he feels fine and he has had tremors in the past. Pt. vitals stable BP 121/65 HR 72 O2 94. Pt. is in not in acute distress. Charge nurse aware. Sitter at bedside. Will continue to monitor.
--- NOTE | 2018-09-09 07:04 | NUR ---
Pt. slept throughout night. Pt. was pleasant and cooperative. Performed bladder scanner on pt. and it showed > 500 cc. Used urinal, the sound of running water and compression on bladder to stimulate pt. to urinate. Only 50 cc in urinal. Charge nurse aware. Attempted oviedo with charge nurse with no results of urine. Blood clot at tip of oviedo catheter. DNP Dent aware. Will endorse to AM nurse
--- NOTE | 2018-09-09 07:30 | NUR ---
RECEIVED PATIENT AWAKE ALERT TO SELF WITH CONFUSSION AND DISORIENTATION .REMAIN ON ONE ONE SITTER FOR SAFETY IVF IN PROGRESS ORDERED WITH NO S/S OF INFILTERATION ON SITE PER REPORT PATIENT IS STILL UNABLE TO VOID DESPITE BLADDER SCANNER SHOWING 500 ML AND HE DID VOID ONLY 50 ML AT THE TIME AND THERE WERE UNABLE TO CATH PATIENT AND THE DOCTOR STATED TO ATTEMPT AGAIN IN AM.WILL ATTEMPT PATIENT TO CATH PATIENT AND IF UNABLE WILL MARLA;L DR BOWLING AND PASCHUAL DNP PATIENT HAS NO S/S OF DISCOMFORTS AT THIS TIME.
[2018-09-09] MEDS: PROTEIN SUPPLEMENT (PROSTAT) 30 ML LIQUID PO SCH (08:19)
[2018-09-09] MEDS: POTASSIUM CHLORIDE 20 MEQ in IV D5/ 0.9% NACL 1,000 ML IV PRN ×2 (08:22→23:49)
[2018-09-09] MEDS: LACOSAMIDE 50 MG TABLET PO SCH ×3 (09:00→20:02)
[2018-09-09] MEDS: LEVETIRACETAM 250 MG TABLET PO SCH ×3 (09:00→20:02)
[2018-09-09] MEDS: MEMANTINE HCL 10 MG TABLET PO SCH ×2 (09:00→12:54)
[2018-09-09] MEDS: DONEPEZIL 10 MG TABLET PO SCH ×2 (09:00→12:54)
[2018-09-09] MEDS: OLANZAPINE ZYDIS 5 MG TAB.RAPDIS PO SCH ×3 (09:00→20:03)
[2018-09-09] MEDS: MUPIROCIN 2% OINT 22 GM TUBE NS SCH ×2 (09:00→20:03)
[2018-09-09] MEDS: TAMSULOSIN HCL 0.4 MG CAP.SR.24H PO SCH ×3 (09:00→16:26)
[2018-09-09] MEDS: FAMOTIDINE 20 MG TABLET PO SCH ×3 (09:00→16:26)
[2018-09-09] MEDS: MIRALAX 17 GM POWD.PACK PO SCH ×2 (09:00→12:54)
[2018-09-09] MEDS: FINASTERIDE 5 MG TABLET PO SCH ×2 (09:00→12:55)
--- NOTE | 2018-09-09 09:00 | NUR ---
ATTEMPTED TO GIVE PATIENT HIS SCHEDULED MEDICATIONS HE IS VERY CONFUSED DISORIENTED COMBATIVE SWUNG AT ME AND KNOCKED OUT THE MEDICATION CUP FROM MY HAND ATTEMPTED TO KICK AT US MYSELF AND THE SITTER UNABLE TO REDIRECT ALL ATTEMPTS TO GIVE HIM DUE MEDICATIONS FAILED.JENI MARSHALL DNP HERE AND AWARE WITH NEW ORDERS.
[2018-09-09] MEDS ORDERED: OLANZAPINE 10 MG VIAL IM ONE (09:15)
--- NOTE | 2018-09-09 09:27 | NUR ---
ZYPREXA GIVEN INTRAMUSCULAR ORDERED WITH 3 STAFF MEMBERS ASSISTING WITH ENSURING THAT HE DOESNT BECOME OUT OF CONTROL.
--- NOTE | 2018-09-09 10:00 | NUR ---
FARFAN CATH INSERTED AT THIS TIME GAUGE 16 CUDE AND 1300 ML CLEAR YELLOW URINE OBTAINED PATIENT WAS SOMEWHAT COMBATIVE KICKING BUT WITH ASSISTANCE OF THE SITTER I WAS ABLE TO INSERT THE CATHETER SECURED ON HIS RIGHT THIGH MADE COMFORTABLE AND WILL CONTINUE TO OBSERVE.
--- NOTE | 2018-09-09 12:53 | NUR ---
PATIENT IS AWAKE ALERT TO SELF EATING LUNCH OFFERED HIM THE MEDICATIONS THAT HE REFUSED THIS MORNING AND HE ACCEPTED SO DOCUMENTED UNSCHEDULED.
[2018-09-09] MEDS ORDERED: OLAN5TAB6 PO ×2 (13:47→20:34)
[2018-09-09] MEDS ORDERED: FINA5TAB11 PO (13:47)
[2018-09-09] MEDS ORDERED: CEFT1VIA14 IJ (13:50)
--- NOTE | 2018-09-09 15:30 | NUR ---
Spoke with Bernice Lua regarding patient. Todays d/c canceled per Dr Disla and plan for d/c in am. Family member requesting to call and notify SHANE, state manager, , when we have d/c orders tomorrow and ambulance mushroom picker time to plan for state manager to go to [facility] and assist patient.
[2018-09-09] MEDS: CEFTRIAXONE 1 G in IV DEXTROSE 5% 50 ML IV SCH (17:03)
--- NOTE | 2018-09-09 18:54 | NUR ---
AWAKE ALERT TO SELF ONLY GETTING MORE CONFUSED REQUIRING FREQUENT REDIRECTION ATTEMPTING TO GET OUT OF BED STATED NEEDED TO LEAVE AND GO SOMEWHERE AT [facility] FOR FALL RELATED TO POOR SAFETY AWARENESS MADE COMFORTABLE WILL CONTINUE TO OBSERVE.
--- NOTE | 2018-09-09 20:00 | NUR ---
Received pt. alert and awake oriented to self and confused. Bernice Lua at bedside. Pt. reports pain in penis. Mills catheter in draining yellow urine. Assessed pt. and will give PRN morphine and zofran for pain. Pt. denies any SOB or difficulty breathing. IV in left forearm 10 gauge intact, patent. 1:1 Sitter at bedside. Will continue to monitor.
[2018-09-09] MEDS: ATORVASTATIN 40 MG TABLET PO SCH (20:02)
[2018-09-09] MEDS: TRAZODONE 50 MG TABLET PO SCH (20:03)
[2018-09-09] MEDS: MELATONIN 3 MG TABLET PO SCH (20:23)
[2018-09-09] MEDS: QUETIAPINE FUMARATE 25 MG TABLET PO PRN (23:41)
[2018-09-10] VITALS: BP 122/73
--- NOTE | 2018-09-10 00:30 | NUR ---
Pt. confused asking for a henao reoriented pt. to reality. Pt. becoming agitated and attempting to take off heart monitor and wrist bands. Calmed pt. down and de-escelated situation with sitter. Educated pt. on importance of heart monitor and wrist band. Gave pt. PRN Seroquel for agitation. Will continue to monitor.
[2018-09-10] MEDS ORDERED: TRAZODONE 50 MG TABLET PO ONE (01:30)
--- NOTE | 2018-09-10 01:45 | NUR ---
Pt. is agitated and confused reorienting pt. to reality. Dr. Lua at bedside requesting to ask Doctor radio electronics technician for another 50 mg of Trazadone because this is what he takes at home for sleep. Charge nurse aware. Spoke to Germán Dent DNP for order. Will give pt. Trazadone 50 mg.
--- NOTE | 2018-09-10 02:31 | NUR ---
Pt. is sleeping. No signs of agitation. Sitter at bedside. Safety measures in place. Will continue to monitor.
[2018-09-10] MEDS: ZIPRASIDONE MESYLATE 20 MG VIAL IM PRN ×2 (03:56→11:34)
--- NOTE | 2018-09-10 03:57 | NUR ---
Pt. is extremely agitated, pulling at IV lines, attempting to get out of bed and yelling at sitter. Reorienting pt. to reality and trying to calm pt. down. Pt. is continuing to yell at sitter and event security officer. PRN SERVANDO Ponce given for agitation. Safety measures in place. Will continue to monitor pt.
[2018-09-10 04:00] VITALS: BP 104/55
--- NOTE | 2018-09-10 06:06 | NUR ---
Pt. sleeping in bed with sitter at bedside. IV in left forearm 20 gauge intact, patent, running prescribed fluids. Mills catheter draining clear yellow urine. Safety measures in place. Comfort measures provided. Will continue to monitor and endorse to AM nurse.
--- NOTE | 2018-09-10 07:15 | NUR ---
RECEIVED IN BED WITH EYES CLOSED PER REPORT PATIENT NEEDED MULTIPLE MEDICATIONS TO CALM HIM DOWN THEY WERE UNABLE TO REDIRECT HIM AND HE IS AT [facility] FOR FALLS AND INJURIES HE IS CURRENTLY RESTING WITH A BEDSIDE OBSERVER SAFE AND NOT IN DISTRESS WILL CONTINUE TO OBSERVE AND PROVIDE SAFE AND THERAPEUTIC ENVIRONMENT AT ALL TIMES.
[2018-09-10] MEDS: FINASTERIDE 5 MG TABLET PO SCH (08:58)
[2018-09-10] MEDS: MEMANTINE HCL 10 MG TABLET PO SCH (08:58)
[2018-09-10] MEDS: LEVETIRACETAM 250 MG TABLET PO SCH ×2 (08:58→20:57)
[2018-09-10] MEDS: MIRALAX 17 GM POWD.PACK PO SCH (08:58)
[2018-09-10] MEDS: TAMSULOSIN HCL 0.4 MG CAP.SR.24H PO SCH ×2 (08:58→16:35)
[2018-09-10] MEDS: OLANZAPINE 2.5 MG TABLET PO SCH ×2 (08:58→20:57)
[2018-09-10] MEDS: DONEPEZIL 10 MG TABLET PO SCH (08:58)
[2018-09-10] MEDS: LACOSAMIDE 50 MG TABLET PO SCH ×2 (08:58→20:58)
[2018-09-10] MEDS: FAMOTIDINE 20 MG TABLET PO SCH ×2 (08:58→16:35)
[2018-09-10] MEDS: PROTEIN SUPPLEMENT (PROSTAT) 30 ML LIQUID PO SCH (09:01)
[2018-09-10] MEDS: MUPIROCIN 2% OINT 22 GM TUBE NS SCH (09:01)
[2018-09-10 09:19] VITALS: BP 134/69
--- NOTE | 2018-09-10 11:34 | NUR ---
PATIENT IS CONFUSED DISORIENTED GETTING OUT OF BED KICKING FIGHTING SPITING AT THE CARE GIVERS UNABLE TO REDIRECT MEDICATED WITH GEODON ORDERED MADE COMFORTABLE AND WILL CONTINUE TO OBSERVE.
--- NOTE | 2018-09-10 13:28 | NUR ---
PATIENT SEEN AND EXAMINED BY AMINTA VISUAL BASIC .NET DEVELOPER WITH NEW ORDERS AND NOTED.
[2018-09-10] MEDS: POTASSIUM CHLORIDE 20 MEQ in IV D5/ 0.9% NACL 1,000 ML IV PRN (16:04)
[2018-09-10 17:04] VITALS: BP 124/66
[2018-09-10] MEDS: CEFTRIAXONE 1 G in IV DEXTROSE 5% 50 ML IV SCH (17:15)
--- NOTE | 2018-09-10 17:40 | NUR ---
PER THE WIRE CHARGERARNP WORKER PATIENT IS NOT ACCEPTED AT [facility] AND WILL NEED TO LOOK FOR OTHER PLACEMENT FOR HIM PATIENTS DPOA DR FRIED AWARE AND STATED WILL LOOK FOR PLACEMENT.PATIENT REMAINS ON ONE ON ONE SITTER OBSERVATION FOR SAFETY ON IVF AND ATB ORDERED WITH NO ADVERSE OR ALLERGIC REACTIONS AT THIS TIME.
[2018-09-10 19:45] VITALS: BP 123/73
--- NOTE | 2018-09-10 20:00 | NUR ---
Pt. resting in bed alert oriented x4. Sitter at bedside. IV in left forearm 20 gauge patent, intact, running fluids. Mills catheter in draining clear yellow urine. Sitter at bedside for safety. Safety measures in place. Call light within reach. Will continue to monitor.
[2018-09-10] MEDS: TRAZODONE 50 MG TABLET PO SCH (20:58)
[2018-09-10] MEDS: ATORVASTATIN 40 MG TABLET PO SCH (20:58)
[2018-09-10] MEDS: MELATONIN 3 MG TABLET PO SCH (20:58)
[2018-09-11 04:00] VITALS: BP 124/55
--- NOTE | 2018-09-11 06:29 | NUR ---
Pt. resting in bed with sitter at bedside. IV in L forearm 20 gauge intact, patent, running fluids. Mills in place draining yellow clear urine. Pt. agitated before 2100 medications. After medications pt. slept throughout night. Safety measures in place, comfort measures provided. Will continue to monitor and endorse to AM nurse.
[2018-09-11 06:32] LABS: BASOPHILS % (AUTO) 0.5 % (0.0-2.0); EOSINOPHILS # (AUTO) 0.3 K/uL (0.0-0.7); EOSINOPHILS % (AUTO) 4.2 % (0.0-7.0); HEMATOCRIT 30.2 % (36.7-47.1); HEMOGLOBIN 10.2 g/dL (12.5-16.3); LYMPHOCYTES # (AUTO) 1.8 K/uL (20.0-40.0); MEAN CORPUSCULAR HEMOGLOBIN 30.5 uug (23.8-33.4); MEAN CORPUSCULAR HGB CONC 34 g/dL (32.5-36.3); MEAN CORPUSCULAR VOLUME 89.8 fL (73.0-96.2); MONOCYTES # (AUTO) 0.7 K/uL (2.0-10.0); MONOCYTES % (AUTO) 10.9 % (0.0-11.0); NEUTROPHILS % (AUTO) 58.4 % (38.5-71.5); PLATELET COUNT (AUTO) 257 K/uL (152-348); RED BLOOD CELL COUNT(AUTO) 3.36 MIL/uL (4.06-5.63); WHITE BLOOD COUNT (AUTO) 6.8 K/uL (3.6-10.2)
[2018-09-11 06:46] LABS: CARBON DIOXIDE 29 mmol/L (21-32); CHLORIDE 108 mmol/L (98-107); CREATININE 0.9 mg/dL (0.6-1.3); GLUCOSE 100 mg/dL (74-106); POTASSIUM 3.9 mmol/L (3.5-5.1); UREA NITROGEN, BLOOD 10 mg/dL (7-18)
--- NOTE | 2018-09-11 07:33 | NUR ---
Received patient in bed asleep, w/ 1:1 sitter. Not in distress at this time.
[2018-09-11] MEDS: POTASSIUM CHLORIDE 20 MEQ in IV D5/ 0.9% NACL 1,000 ML IV PRN ×2 (07:50→23:26)
[2018-09-11] MEDS: FAMOTIDINE 20 MG TABLET PO SCH ×2 (08:33→16:34)
[2018-09-11] MEDS: TAMSULOSIN HCL 0.4 MG CAP.SR.24H PO SCH ×2 (08:33→16:34)
[2018-09-11] MEDS: LEVETIRACETAM 250 MG TABLET PO SCH ×2 (08:33→21:25)
[2018-09-11] MEDS: FINASTERIDE 5 MG TABLET PO SCH (08:33)
[2018-09-11] MEDS: OLANZAPINE 2.5 MG TABLET PO SCH ×2 (08:33→16:34)
[2018-09-11] MEDS: MEMANTINE HCL 10 MG TABLET PO SCH (08:33)
[2018-09-11] MEDS: LACOSAMIDE 50 MG TABLET PO SCH ×2 (08:33→21:25)
[2018-09-11] MEDS: PROTEIN SUPPLEMENT (PROSTAT) 30 ML LIQUID PO SCH (08:33)
[2018-09-11] MEDS: MIRALAX 17 GM POWD.PACK PO SCH (08:33)
[2018-09-11] MEDS: DONEPEZIL 10 MG TABLET PO SCH (08:34)
[2018-09-11 10:17] VITALS: BP 111/36
[2018-09-11 16:29] VITALS: BP 120/64
[2018-09-11] MEDS: CEFTRIAXONE 1 G in IV DEXTROSE 5% 50 ML IV SCH (17:08)
--- NOTE | 2018-09-11 18:08 | NUR ---
Patient A&Ox1. Slept intermittently throughout the day. w/ 1:1 sitter at bedside. No distress noted this shift. Reinserted IV gauge 22 on right hand, IVF patent and infusing well. Last dose of IV ATB administered, tolerated well.
[2018-09-11 20:00] VITALS: BP 124/66
[2018-09-11] MEDS: ATORVASTATIN 40 MG TABLET PO SCH (21:25)
[2018-09-11] MEDS: TRAZODONE 50 MG TABLET PO SCH (21:25)
[2018-09-11] MEDS: MELATONIN 3 MG TABLET PO SCH (21:28)
[2018-09-11] MEDS: ZIPRASIDONE MESYLATE 20 MG VIAL IM PRN (22:06)
[2018-09-11 23:27] VITALS: BP 133/67
[2018-09-12 06:24] VITALS: BP 124/65
[2018-09-12 06:34] LABS: BASOPHILS % (AUTO) 0.5 % (0.0-2.0); EOSINOPHILS # (AUTO) 0.4 K/uL (0.0-0.7); HEMATOCRIT 28.6 % (36.7-47.1); HEMOGLOBIN 9.6 g/dL (12.5-16.3); LYMPHOCYTES # (AUTO) 1.9 K/uL (20.0-40.0); LYMPHOCYTES % (AUTO) 25.3 % (20.5-51.5); MEAN CORPUSCULAR HEMOGLOBIN 30.4 uug (23.8-33.4); MEAN CORPUSCULAR HGB CONC 34 g/dL (32.5-36.3); MEAN CORPUSCULAR VOLUME 90.3 fL (73.0-96.2); MONOCYTES # (AUTO) 0.9 K/uL (2.0-10.0); MONOCYTES % (AUTO) 11.5 % (0.0-11.0); NEUTROPHILS # (AUTO) 4.4 K/uL (1.8-8.9); NEUTROPHILS % (AUTO) 57.7 % (38.5-71.5); PLATELET COUNT (AUTO) 248 K/uL (152-348); RED BLOOD CELL COUNT(AUTO) 3.17 MIL/uL (4.06-5.63); WHITE BLOOD COUNT (AUTO) 7.7 K/uL (3.6-10.2)
[2018-09-12 06:38] LABS: CHLORIDE 109 mmol/L (98-107); GLUCOSE 95 mg/dL (74-106); POTASSIUM 4.4 mmol/L (3.5-5.1); UREA NITROGEN, BLOOD 19 mg/dL (7-18)
[2018-09-12 06:59] LABS: CARBON DIOXIDE 26 mmol/L (21-32)
--- NOTE | 2018-09-12 07:30 | NUR ---
RECEIVED PATIENT SLEEPING IN BED, NO DISTRESS NOTED. SITTER AT BEDSIDE. BED IN LOWEST POSITION, SIDE RAILS UP X2, CALL LIGHT WITHIN REACH. WILL CONTINUE TO MONITOR.
[2018-09-12] MEDS: FAMOTIDINE 20 MG TABLET PO SCH ×2 (09:12→17:00)
[2018-09-12] MEDS: LACOSAMIDE 50 MG TABLET PO SCH (09:12)
[2018-09-12] MEDS: TAMSULOSIN HCL 0.4 MG CAP.SR.24H PO SCH ×2 (09:12→17:00)
[2018-09-12] MEDS: FINASTERIDE 5 MG TABLET PO SCH (09:12)
[2018-09-12] MEDS: LEVETIRACETAM 250 MG TABLET PO SCH (09:12)
[2018-09-12] MEDS: MEMANTINE HCL 10 MG TABLET PO SCH (09:12)
[2018-09-12] MEDS: MIRALAX 17 GM POWD.PACK PO SCH (09:13)
[2018-09-12] MEDS: PROTEIN SUPPLEMENT (PROSTAT) 30 ML LIQUID PO SCH (09:13)
[2018-09-12] MEDS: DONEPEZIL 10 MG TABLET PO SCH (09:13)
[2018-09-12] MEDS: OLANZAPINE 2.5 MG TABLET PO SCH ×3 (09:13→17:00)
[2018-09-12] MEDS: ERGOCALCIFEROL 50,000 UNIT CAPSULE PO SCH (09:29)
[2018-09-12 10:29] VITALS: BP 115/70
[2018-09-12 14:27] VITALS: BP 107/71
[2018-09-12] MEDS: POTASSIUM CHLORIDE 20 MEQ in IV D5/ 0.9% NACL 1,000 ML IV PRN (15:03)
[2018-09-12] MEDS: ZIPRASIDONE MESYLATE 20 MG VIAL IM PRN (16:58)
--- NOTE | 2018-09-12 17:00 | NUR ---
PATIENT HAD EPISODE OF AGITATION, SCREAMING AND HITTING RN. PATIENT REFUSED 5PM MEDICATIONS. GEODON 3MG GIVEN IM FOR AGITATION.
--- NOTE | 2018-09-12 17:20 | NUR ---
CALLED ASHLEY SPOKE TO RADHA BUCKLEY.
--- NOTE | 2018-09-12 18:29 | NUR ---
Resident was transported to ARU, endorsed to ARU RN Accordingly.
== END 2018-09-12 18:20 | DRG 871 ==
LOC: ER 17:06 → MEDSURG3 19:50 → TELE3 22:45 → MEDSURG3 09-10 13:50
PROVIDERS: ADMIT Internal Medicine; ATTEND Internal Medicine
DX: A41.9 Sepsis, unspecified organism (principal); G92 Toxic encephalopathy; E44.0 Moderate protein-calorie malnutrition; D68.59 Other primary thrombophilia; B37.49 Other urogenital candidiasis; E87.0 Hyperosmolality and hypernatremia; F01.51 Vascular dementia, unspecified severity, with behavioral disturbance; I50.22 Chronic systolic (congestive) heart failure; B49 Unspecified mycosis; E78.5 Hyperlipidemia, unspecified; Z79.82 Long term (current) use of aspirin; Z79.899 Other long term (current) drug therapy; E87.6 Hypokalemia; S06.5X9D Traumatic subdural hemorrhage with loss of consciousness of unspecified duration, subsequent encounter; R40.2362 Coma scale, best motor response, obeys commands, at arrival to emergency department; R40.2142 Coma scale, eyes open, spontaneous, at arrival to emergency department; R40.2242 Coma scale, best verbal response, confused conversation, at arrival to emergency department; W19.XXXD Unspecified fall, subsequent encounter; I25.10 Atherosclerotic heart disease of native coronary artery without angina pectoris; Z95.5 Presence of coronary angioplasty implant and graft; I69.819 Unspecified symptoms and signs involving cognitive functions following other cerebrovascular disease; N40.1 Benign prostatic hyperplasia with lower urinary tract symptoms; R33.8 Other retention of urine; Z68.20 Body mass index [BMI] 20.0-20.9, adult; Z87.891 Personal history of nicotine dependence; G40.909 Epilepsy, unspecified, not intractable, without status epilepticus; Z74.09 Other reduced mobility; I25.2 Old myocardial infarction; I70.0 Atherosclerosis of aorta; R65.20 Severe sepsis without septic shock; R94.02 Abnormal brain scan; E83.42 Hypomagnesemia; F41.9 Anxiety disorder, unspecified; Z93.6 Other artificial openings of urinary tract status; K21.9 Gastro-esophageal reflux disease without esophagitis; K57.30 Diverticulosis of large intestine without perforation or abscess without bleeding; R13.10 Dysphagia, unspecified; Z22.322 Carrier or suspected carrier of Methicillin resistant Staphylococcus aureus; Z87.440 Personal history of urinary (tract) infections; Z90.79 Acquired absence of other genital organ(s); Z91.19 Patient's noncompliance with other medical treatment and regimen; I11.0 Hypertensive heart disease with heart failure; I35.1 Nonrheumatic aortic (valve) insufficiency; I25.5 Ischemic cardiomyopathy; D64.9 Anemia, unspecified
CPT/HCPCS: 36415; 70030-TC; 70450; 71045; 83735; 83921; 84100; 84153; 84443; 85025; 87077; 87086; 92526; 92610; 93005; 97110; 97112; 97116; 97530; A4663; G0378; J0696; J1450; J1953; J2248; J2270; J2358; J2405; J3475; J3480; J3486; J3490; J7042; J7060

== ENCOUNTER 2018-09-12 14:22 | Inpatient (IN) | payer MEDICARE, BC ==
[~2018-09-12] VITALS: Ht 167.6 cm; Wt 58.5 kg
[~2018-09-12 14:22] MED LIST changes: +ACET-2605 PO; +ACET325T53 PO; -ASPI81TA31 PO; +CEFT1VIA14 IJ; +DONE10TA44 PO; +FINA5TAB11 PO; -GUAI100S9 PO; +MULT-213 PO; +NYST15CR TP; +OLAN5TAB6 PO; +TRAZ-182 PO; -TRAZ-214 PO; -ZALE10CA PO
[2018-09-12 19:00] VITALS: BP 114/60
[2018-09-12 19:31] VITALS: BP 133/66
[2018-09-12] MEDS ORDERED: LEVETIRACETAM 250 MG TABLET PO SCH (21:30)
[2018-09-12] MEDS ORDERED: GABAPENTIN 50 MG PO PRN (21:45)
--- NOTE | 2018-09-12 21:45 | NUR ---
Received pt resting in bed. AAO x1. Sitter at bedside for safety. No acute distress noted. Denies pain or discomfort. FLACC 0. When asked if he knows where is he at, pt stated "I'd rather not tell you." Pertinent assessment done. Dr. Ann notified of admission and to reconcile med. Dr. Kyle also aware of admission. No redness on groin noted. MRSA swab sent to lab. Oriented pt to the unit. Safety measures maintained. Will continue to monitor.
[2018-09-12] MEDS ORDERED: OLANZAPINE ZYDIS 5 MG TAB.RAPDIS PO SCH (22:00)
[2018-09-12] MEDS: ATORVASTATIN 40 MG TABLET PO SCH (22:24)
--- NOTE | 2018-09-12 23:22 | NUR ---
Zyprexa zydis changed to regular zyprexa PO, ordered received from Dr. Ann due to medication not available in pyxis. Will continue to monitor.
[2018-09-12] MEDS: OLANZAPINE 2.5 MG TABLET PO SCH (23:39)
[2018-09-13 04:50] VITALS: BP 136/72
[2018-09-13] MEDS: OLANZAPINE 2.5 MG TABLET PO SCH ×3 (05:44→21:17)
[2018-09-13] MEDS ORDERED: CEFTRIAXONE 1 G VIAL IV SCH (09:00)
--- NOTE | 2018-09-13 09:16 | NUR ---
INTERDISCIPLINARY TEAM CONFERENCE
[2018-09-13 09:46] VITALS: BP_SYST 111; BP_SYST 97; BP_DIAS 49; BP_DIAS 57
[2018-09-13] MEDS: FAMOTIDINE 20 MG TABLET PO SCH ×2 (10:10→16:29)
[2018-09-13] MEDS: MIRALAX 17 GM POWD.PACK PO SCH (10:11)
[2018-09-13] MEDS: DONEPEZIL 10 MG TABLET PO SCH (10:11)
[2018-09-13] MEDS: SPIRONOLACTONE 25 MG TABLET PO SCH (10:12)
[2018-09-13] MEDS: MULTIVIT, IRON, MIN NO. 8, FA TABLET PO SCH (10:13)
[2018-09-13] MEDS: MEMANTINE HCL 10 MG TABLET PO SCH (10:13)
[2018-09-13] MEDS: CARVEDILOL 3.125 MG TABLET PO SCH ×2 (10:14→16:13)
[2018-09-13] MEDS: FINASTERIDE 5 MG TABLET PO SCH (10:14)
[2018-09-13] MEDS: NYSTATIN CREAM 30 GM TUBE TP SCH (14:33)
[2018-09-13] MEDS: LACOSAMIDE 50 MG TABLET PO SCH ×2 (14:33→16:22)
[2018-09-13 16:00] VITALS: BP 122/68
[2018-09-13] MEDS: QUETIAPINE FUMARATE 25 MG TABLET PO PRN (16:11)
[2018-09-13] MEDS: TAMSULOSIN HCL 0.4 MG CAP.SR.24H PO SCH (16:11)
[2018-09-13] MEDS: LOSARTAN POTASSIUM 25 MG TABLET PO SCH (16:15)
[2018-09-13] MEDS ORDERED: GABAPENTIN 50 MG PO SCH (18:00)
[2018-09-13 19:25] VITALS: BP 112/61
[2018-09-13] MEDS: ATORVASTATIN 40 MG TABLET PO SCH (20:36)
[2018-09-13] MEDS: ACETAMINOPHEN ES 500 MG TABLET PO PRN (20:37)
[2018-09-13] MEDS: TRAZODONE 50 MG TABLET PO SCH (20:38)
[2018-09-13] MEDS: MELATONIN 3 MG TABLET PO SCH (20:39)
--- NOTE | 2018-09-13 21:30 | NUR ---
Received pt resting in bed. AAO x1. No acute distress noted. Denies pain or discomfort. 1:1 sitter at bedside for safety. VS WNL. Due meds given as ordered. Safety measures maintained. Will continue to monitor.
[2018-09-13] MEDS ORDERED: LORAZEPAM 1 MG TABLET PO PRN (22:30)
--- NOTE | 2018-09-13 22:30 | NUR ---
Pt agitated, shouting, and trying to get out of room without assist. Pt tried to put on pants, unsteady gait. 1:1 sitter at bedside for safety. Notified Sedrick CABALLERO. New order for Ativan 1 mg PO ONCE. Carried out order. Will continue to monitor.
[2018-09-14 05:08] VITALS: BP 122/58
[2018-09-14] MEDS: OLANZAPINE 2.5 MG TABLET PO SCH ×3 (05:31→21:05)
[2018-09-14 06:19] LABS: BASOPHILS # (AUTO) 0.1 K/uL (0.0-8.0); BASOPHILS % (AUTO) 0.7 % (0.0-2.0); EOSINOPHILS # (AUTO) 0.4 K/uL (0.0-0.7); EOSINOPHILS % (AUTO) 5.6 % (0.0-7.0); HEMATOCRIT 30.7 % (36.7-47.1); HEMOGLOBIN 10.2 g/dL (12.5-16.3); LYMPHOCYTES # (AUTO) 2.5 K/uL (20.0-40.0); LYMPHOCYTES % (AUTO) 33.3 % (20.5-51.5); MEAN CORPUSCULAR HEMOGLOBIN 30.2 uug (23.8-33.4); MEAN CORPUSCULAR HGB CONC 33 g/dL (32.5-36.3); MEAN CORPUSCULAR VOLUME 90.4 fL (73.0-96.2); MONOCYTES % (AUTO) 13.1 % (0.0-11.0); NEUTROPHILS # (AUTO) 3.6 K/uL (1.8-8.9); NEUTROPHILS % (AUTO) 47.3 % (38.5-71.5); PLATELET COUNT (AUTO) 279 K/uL (152-348); RED BLOOD CELL COUNT(AUTO) 3.39 MIL/uL (4.06-5.63); WHITE BLOOD COUNT (AUTO) 7.7 K/uL (3.6-10.2)
[2018-09-14 06:35] LABS: ALANINE AMINOTRANSFERASE 32 U/L (16-63); ALKALINE PHOSPHATASE 76 U/L (50-136); ASPARTATE AMINOTRANSFERASE 16 U/L (15-37); BILIRUBIN,TOTAL 0.5 mg/dL (0.2-1.0); CARBON DIOXIDE 32 mmol/L (21-32); CHLORIDE 106 mmol/L (98-107); CREATININE 1.1 mg/dL (0.6-1.3); GLUCOSE 92 mg/dL (74-106); MAGNESIUM 2.1 mg/dL (1.8-2.4); PHOSPHOROUS 4.5 mg/dL (2.5-4.9); POTASSIUM 4.4 mmol/L (3.5-5.1); TOTAL PROTEIN, SERUM 6.6 g/dL (6.4-8.2); UREA NITROGEN, BLOOD 17 mg/dL (7-18)
[2018-09-14] MEDS: DONEPEZIL 10 MG TABLET PO SCH (08:47)
[2018-09-14] MEDS: FAMOTIDINE 20 MG TABLET PO SCH ×2 (08:47→17:14)
[2018-09-14] MEDS: MEMANTINE HCL 10 MG TABLET PO SCH (08:47)
[2018-09-14] MEDS: SPIRONOLACTONE 25 MG TABLET PO SCH (08:47)
[2018-09-14] MEDS: MULTIVIT, IRON, MIN NO. 8, FA TABLET PO SCH (08:48)
[2018-09-14] MEDS: LACOSAMIDE 50 MG TABLET PO SCH ×2 (08:48→17:14)
[2018-09-14] MEDS: CARVEDILOL 3.125 MG TABLET PO SCH ×2 (08:48→17:18)
[2018-09-14] MEDS: NYSTATIN CREAM 30 GM TUBE TP SCH (08:48)
[2018-09-14] MEDS: FINASTERIDE 5 MG TABLET PO SCH (08:48)
[2018-09-14] MEDS: MIRALAX 17 GM POWD.PACK PO SCH (08:49)
--- NOTE | 2018-09-14 10:58 | NUR ---
Patient noted sitting in bed, call light in reach, bed locked and in lowest position, no complaints of pain, no signs of distress, took all pills whole without issues, all needs met
[2018-09-14] MEDS: TAMSULOSIN HCL 0.4 MG CAP.SR.24H PO SCH (17:14)
[2018-09-14] MEDS: LOSARTAN POTASSIUM 25 MG TABLET PO SCH (17:15)
[2018-09-14 19:30] VITALS: BP 152/101
--- NOTE | 2018-09-14 19:30 | NUR ---
Family request urology consult for bladder retention and oviedo catheter removal, SUPERVISOR SAMPLE PREPARATION Dmitrey approved request, order for urologist placed
--- NOTE | 2018-09-14 19:45 | NUR ---
Patient received in bed, AAO x1-2, sometimes confused. No acute distress or SOB noted. On room air. No Complain of pain at this time. Remains with 1:1 sitter for safety. Physical assessment done. Mills catheter in place, draining yellow urine. Safety measures observed. Fall precaution maintained. Bed in low position, side rails up x2 for safety, brake and alarm on. call light and personal belongings within reach. Continue to monitor.
[2018-09-14] MEDS: MELATONIN 3 MG TABLET PO SCH (21:02)
[2018-09-14] MEDS: ATORVASTATIN 40 MG TABLET PO SCH (21:02)
[2018-09-14] MEDS: TRAZODONE 50 MG TABLET PO SCH (21:02)
[2018-09-15 05:00] VITALS: BP 88/60
[2018-09-15] MEDS: OLANZAPINE 2.5 MG TABLET PO SCH ×3 (06:15→21:03)
--- NOTE | 2018-09-15 06:48 | NUR ---
End of the shift note Patient was stable throughout the shift and has a good sleep last night. No acute distress or SOB noted. On room air. Remains with 1:1 sitter for safety. Mills catheter in place draining yellow urine. All due medication given as ordered and tolerated well. Physical assessment done. Safety measures observed. Fall precaution maintained. All needs attended promptly. Bed in low position, side rails up x2 for safety, brake and alarm on. call light and personal belongings within reach. Continue to monitor and will endorse to the day shift nurse accordingly.
--- NOTE | 2018-09-15 07:31 | NUR ---
Patient noted resting in bed, 1 to 1 sitter noted, no complaints of pain, no signs of distress, no behaviors noted at this time, call light in reach, bed locked and in lowest position, side rails in place, all needs met at this time
[2018-09-15 07:56] VITALS: BP 91/54
[2018-09-15] MEDS: CARVEDILOL 3.125 MG TABLET PO SCH ×2 (08:00→17:31)
[2018-09-15] MEDS: FAMOTIDINE 20 MG TABLET PO SCH ×2 (08:11→16:39)
[2018-09-15] MEDS: LACOSAMIDE 50 MG TABLET PO SCH ×2 (08:11→16:39)
[2018-09-15] MEDS: MULTIVIT, IRON, MIN NO. 8, FA TABLET PO SCH (08:11)
[2018-09-15] MEDS: MEMANTINE HCL 10 MG TABLET PO SCH (08:12)
[2018-09-15] MEDS: MIRALAX 17 GM POWD.PACK PO SCH (08:12)
[2018-09-15] MEDS: FINASTERIDE 5 MG TABLET PO SCH (08:12)
[2018-09-15] MEDS: SPIRONOLACTONE 25 MG TABLET PO SCH (08:12)
[2018-09-15] MEDS: NYSTATIN CREAM 30 GM TUBE TP SCH (08:12)
[2018-09-15] MEDS: DONEPEZIL 10 MG TABLET PO SCH (08:12)
--- NOTE | 2018-09-15 15:21 | NUR ---
INDIVIDUALIZED OVERALL PLAN OF CAR
[2018-09-15 16:00] VITALS: BP 98/54
[2018-09-15] MEDS: LOSARTAN POTASSIUM 25 MG TABLET PO SCH (17:31)
[2018-09-15] MEDS: TAMSULOSIN HCL 0.4 MG CAP.SR.24H PO SCH (17:42)
[2018-09-15 19:25] VITALS: BP 113/68
--- NOTE | 2018-09-15 19:45 | NUR ---
Patient received in wheelchair, AAO x1, sometimes confused. No acute distress or SOB noted. On room air. No Complain of pain at this time. Remains with 1:1 sitter for safety. Physical assessment done. Mills catheter in place, draining yellow urine. Safety measures observed. Fall precaution maintained. Bed in low position, side rails up x2 for safety, brake and alarm on. call light and personal belongings within reach. Continue to monitor.
[2018-09-15] MEDS: ATORVASTATIN 40 MG TABLET PO SCH (20:09)
[2018-09-15] MEDS: TRAZODONE 50 MG TABLET PO SCH (20:09)
[2018-09-15] MEDS: MELATONIN 3 MG TABLET PO SCH (20:09)
[2018-09-16] MEDS: OLANZAPINE 2.5 MG TABLET PO SCH ×3 (06:15→21:14)
[2018-09-16 06:29] VITALS: BP 112/64
--- NOTE | 2018-09-16 07:16 | NUR ---
Patient noted resting in bed with eyes closed, no facial cues of pain noted, no signs of distress noted, call light in reach, bed locked and in lowest position, 1 to 1 sitter noted at bedside, all needs met at this time
[2018-09-16 08:00] VITALS: BP 117/64
[2018-09-16] MEDS: CARVEDILOL 3.125 MG TABLET PO SCH ×2 (08:00→17:34)
[2018-09-16] MEDS: LACOSAMIDE 50 MG TABLET PO SCH ×2 (08:46→17:35)
[2018-09-16] MEDS: SPIRONOLACTONE 25 MG TABLET PO SCH (08:46)
[2018-09-16] MEDS: FAMOTIDINE 20 MG TABLET PO SCH ×2 (08:46→17:35)
[2018-09-16] MEDS: MEMANTINE HCL 10 MG TABLET PO SCH (08:46)
[2018-09-16] MEDS: FINASTERIDE 5 MG TABLET PO SCH (08:46)
[2018-09-16] MEDS: DONEPEZIL 10 MG TABLET PO SCH (08:46)
[2018-09-16] MEDS: MULTIVIT, IRON, MIN NO. 8, FA TABLET PO SCH (08:46)
[2018-09-16] MEDS: NYSTATIN CREAM 30 GM TUBE TP SCH (08:47)
[2018-09-16] MEDS: MIRALAX 17 GM POWD.PACK PO SCH (08:48)
--- NOTE | 2018-09-16 09:14 | NUR ---
INTERDISCIPLINARY TEAM CONFERENCE
[2018-09-16 16:00] VITALS: BP 120/62
[2018-09-16] MEDS: LOSARTAN POTASSIUM 25 MG TABLET PO SCH (17:34)
[2018-09-16] MEDS: TAMSULOSIN HCL 0.4 MG CAP.SR.24H PO SCH (17:35)
--- NOTE | 2018-09-16 18:55 | NUR ---
no behaviors noted this shift, no PRN medications given, continues with 1 to 1 sitter, all needs met
[2018-09-16 20:08] VITALS: BP 115/66
[2018-09-16] MEDS: ATORVASTATIN 40 MG TABLET PO SCH (21:13)
[2018-09-16] MEDS: TRAZODONE 50 MG TABLET PO SCH (21:14)
[2018-09-16] MEDS: MELATONIN 3 MG TABLET PO SCH (21:14)
--- NOTE | 2018-09-16 21:34 | NUR ---
Received pt in bed, resting comfortably with 1:1 sitter at bedside. No acute distress noted. Verbally responsive and able to make needs known. Sitter at bedside for safety. All due PM medications given as ordered, tolerated well. Mills cath noted, draining clear, yellow urine in bag. Denies pain or discomfort at this time. No facial indications of pain noted. All safety measures and fall precautions maintained. Call light and all frequently used items within reach. Will continue to monitor.
[2018-09-16] MEDS: QUETIAPINE FUMARATE 25 MG TABLET PO PRN (23:31)
[2018-09-17 04:32] VITALS: BP 106/68
[2018-09-17] MEDS: OLANZAPINE 2.5 MG TABLET PO SCH ×2 (06:17→13:01)
[2018-09-17] MEDS: CARVEDILOL 3.125 MG TABLET PO SCH ×2 (08:17→17:31)
[2018-09-17] MEDS: DONEPEZIL 10 MG TABLET PO SCH (08:18)
[2018-09-17] MEDS: FAMOTIDINE 20 MG TABLET PO SCH ×2 (08:18→17:28)
[2018-09-17] MEDS: MEMANTINE HCL 10 MG TABLET PO SCH (08:18)
[2018-09-17] MEDS: SPIRONOLACTONE 25 MG TABLET PO SCH (08:18)
[2018-09-17] MEDS: MULTIVIT, IRON, MIN NO. 8, FA TABLET PO SCH (08:19)
[2018-09-17] MEDS: LACOSAMIDE 50 MG TABLET PO SCH ×2 (08:19→17:29)
[2018-09-17] MEDS: FINASTERIDE 5 MG TABLET PO SCH (08:19)
[2018-09-17] MEDS: MIRALAX 17 GM POWD.PACK PO SCH (08:20)
--- NOTE | 2018-09-17 08:20 | NUR ---
Patient awake, alert, verbally responsive, in bed, not in any form of distress. He denies any pain or discomfort at this time. 1:1 sitter at bedside for safety. Due medications administered as ordered and tolerated well. Safety measures in place.
[2018-09-17 08:41] VITALS: BP 131/68
[2018-09-17] MEDS: NYSTATIN CREAM 30 GM TUBE TP SCH (10:38)
[2018-09-17] MEDS: QUETIAPINE FUMARATE 25 MG TABLET PO PRN (11:48)
--- NOTE | 2018-09-17 12:35 | NUR ---
Patient noted to be agitated, yelling at staff, getting out of bed unassisted and tries to kick staff who would assist him with his needs. Patient also trying to pull out oviedo catheter, patient thinks the people wants to take his money. Notified Dmitri Albarran DNP and said OK to administer the current order of PRN Seroquel 25mg PO. Informed Dmitri Albarran that Seroquel didn't work and ordered Geodon 3mg IM PRN Q 6hrs.
[2018-09-17] MEDS: ZIPRASIDONE MESYLATE 20 MG VIAL IM PRN (13:42)
--- NOTE | 2018-09-17 14:20 | NUR ---
Bita Bang REMEDIATION PROJECT ENGINEER came to see patient, given update and per REMEDIATION PROJECT ENGINEER she'll check into his medications and have psychiatrist see patient.
--- NOTE | 2018-09-17 15:40 | NUR ---
Dr. Sears came to see patient, update given to MD, and MD put in new orders.
[2018-09-17 15:58] VITALS: BP 103/66
[2018-09-17] MEDS: TAMSULOSIN HCL 0.4 MG CAP.SR.24H PO SCH (17:28)
[2018-09-17] MEDS: LOSARTAN POTASSIUM 25 MG TABLET PO SCH (17:28)
[2018-09-17 17:29] VITALS: BP 125/79
[2018-09-17] MEDS: DIVALPROEX 125 MG TABLET.DR PO SCH ×2 (17:29→20:05)
--- NOTE | 2018-09-17 17:30 | NUR ---
Patient calmed down, now cooperative with care and compliant with medication.
[2018-09-17] MEDS: TRAZODONE 50 MG TABLET PO SCH (20:05)
[2018-09-17] MEDS: MELATONIN 3 MG TABLET PO SCH (20:05)
[2018-09-17] MEDS: ATORVASTATIN 40 MG TABLET PO SCH (20:05)
[2018-09-17 20:10] VITALS: BP 110/67
--- NOTE | 2018-09-17 21:03 | NUR ---
Received pt resting in bed. AAO x1. No acute distress noted. Denies pain or discomfort. 1:1 sitter at bedside. Ambulated in the hallway with assist. Pt stated that he wants to go home, reoriented pt. All due meds given as ordered. Pt is now back to bed. Mills catheter draining well with clear yellow colored urine. Safety measures maintained. Will continue to monitor.
[2018-09-17] MEDS: OLANZAPINE 5 MG TABLET PO SCH (21:10)
[2018-09-17] MEDS ORDERED: OLANZAPINE 2.5 MG TABLET PO SCH (22:00)
[2018-09-18 05:06] VITALS: BP 117/63
[2018-09-18] MEDS: OLANZAPINE 5 MG TABLET PO SCH ×3 (06:16→21:00)
--- NOTE | 2018-09-18 07:55 | NUR ---
Patient noted resting in bed with eyes closed, no facial cues of pain noted, call light in reach, 1 to 1 sitter noted at the bedside, bed locked and in lowest position, side rails in place, all needs met at this time
[2018-09-18] MEDS: CARVEDILOL 3.125 MG TABLET PO SCH ×2 (08:00→17:25)
[2018-09-18] MEDS: DONEPEZIL 10 MG TABLET PO SCH (08:09)
[2018-09-18] MEDS: SPIRONOLACTONE 25 MG TABLET PO SCH (08:09)
[2018-09-18] MEDS: LACOSAMIDE 50 MG TABLET PO SCH ×2 (08:09→17:22)
[2018-09-18] MEDS: MULTIVIT, IRON, MIN NO. 8, FA TABLET PO SCH (08:09)
[2018-09-18] MEDS: FAMOTIDINE 20 MG TABLET PO SCH ×2 (08:09→17:22)
[2018-09-18] MEDS: FINASTERIDE 5 MG TABLET PO SCH (08:09)
[2018-09-18] MEDS: MEMANTINE HCL 10 MG TABLET PO SCH (08:09)
[2018-09-18] MEDS: MIRALAX 17 GM POWD.PACK PO SCH (08:09)
[2018-09-18] MEDS: NYSTATIN CREAM 30 GM TUBE TP SCH (08:10)
[2018-09-18] MEDS: DIVALPROEX 125 MG TABLET.DR PO SCH ×3 (08:11→20:14)
[2018-09-18 09:36] VITALS: BP 91/51
[2018-09-18 16:23] VITALS: BP 98/52
[2018-09-18] MEDS: TAMSULOSIN HCL 0.4 MG CAP.SR.24H PO SCH (17:22)
[2018-09-18] MEDS: LOSARTAN POTASSIUM 25 MG TABLET PO SCH (17:25)
[2018-09-18 19:40] VITALS: BP 99/60
[2018-09-18] MEDS: MELATONIN 3 MG TABLET PO SCH (20:14)
[2018-09-18] MEDS: TRAZODONE 50 MG TABLET PO SCH (20:14)
[2018-09-18] MEDS: ATORVASTATIN 40 MG TABLET PO SCH (20:14)
[2018-09-18] MEDS: ACETAMINOPHEN ES 500 MG TABLET PO PRN (20:15)
--- NOTE | 2018-09-18 23:19 | NUR ---
Received pt resting in bed. AAO x 1. 1:1 sitter at bedside for safety. Denies pain or discomfort. Frequent redirection and reorientation provided. Ambulated in hallway using FWW and x 1 assist. Mills cath noted draining clear, yellow urine in bag. All safety measures and fall precautions maintained. Call light and all personal belongings within reach. Will continue to monitor.
[2018-09-19 04:00] VITALS: BP 105/69
[2018-09-19] MEDS: OLANZAPINE 5 MG TABLET PO SCH ×3 (05:28→23:05)
[2018-09-19 08:00] VITALS: BP 109/63
[2018-09-19] MEDS: FAMOTIDINE 20 MG TABLET PO SCH ×2 (08:36→16:13)
[2018-09-19] MEDS: DONEPEZIL 10 MG TABLET PO SCH (08:36)
[2018-09-19] MEDS: MEMANTINE HCL 10 MG TABLET PO SCH (08:36)
[2018-09-19] MEDS: LACOSAMIDE 50 MG TABLET PO SCH ×2 (08:36→16:12)
[2018-09-19] MEDS: MULTIVIT, IRON, MIN NO. 8, FA TABLET PO SCH (08:36)
[2018-09-19] MEDS: SPIRONOLACTONE 25 MG TABLET PO SCH (08:36)
[2018-09-19] MEDS: FINASTERIDE 5 MG TABLET PO SCH (08:36)
[2018-09-19] MEDS: DIVALPROEX 125 MG TABLET.DR PO SCH ×3 (08:37→20:58)
[2018-09-19] MEDS: CARVEDILOL 3.125 MG TABLET PO SCH ×2 (08:37→17:21)
[2018-09-19] MEDS: MIRALAX 17 GM POWD.PACK PO SCH (08:38)
[2018-09-19] MEDS: NYSTATIN CREAM 30 GM TUBE TP SCH (08:41)
[2018-09-19] MEDS ORDERED: ERGOCALCIFEROL 50,000 UNIT CAPSULE PO SCH (09:00)
--- NOTE | 2018-09-19 09:13 | NUR ---
Received patient awake in bed in stable condition. no behavioral problem noted. Continue on 1:1 sitter. Continue on geodon PRN for agitation. will continue monitor
[2018-09-19] MEDS: ACETAMINOPHEN ES 500 MG TABLET PO PRN (11:26)
--- NOTE | 2018-09-19 12:01 | NUR ---
Patient complaint of lower back pain, tylenol 650mg given. tolerated well. CRISTÓBAL Bang notified. ordered lumbar spine x-ray. will continue monitor
[2018-09-19] MEDS: ZIPRASIDONE MESYLATE 20 MG VIAL IM PRN (13:30)
[2018-09-19 15:30] VITALS: BP 111/62
[2018-09-19] MEDS: TAMSULOSIN HCL 0.4 MG CAP.SR.24H PO SCH (17:20)
[2018-09-19] MEDS: LOSARTAN POTASSIUM 25 MG TABLET PO SCH (17:20)
--- NOTE | 2018-09-19 19:20 | NUR ---
Seen patient ambulating in the hallways with FWW with the sitter assisting. No SOB/SOBOE noted. Denies any pain/discomforts at this time. safety measure and fall precaution maintained. Continue care as planned.
[2018-09-19 20:34] VITALS: BP 133/61
[2018-09-19] MEDS: MELATONIN 3 MG TABLET PO SCH (20:58)
[2018-09-19] MEDS: TRAZODONE 50 MG TABLET PO SCH (20:58)
[2018-09-19] MEDS: ATORVASTATIN 40 MG TABLET PO SCH (20:58)
[2018-09-20 04:30] VITALS: BP 104/56
[2018-09-20] MEDS: OLANZAPINE 5 MG TABLET PO SCH ×3 (05:56→21:39)
--- NOTE | 2018-09-20 06:52 | NUR ---
Shift End Report: VS stable. Slept good. No complaint presented throughout the night. Sitter remain at bedside. All needs attended and met. No significant event reported. Continue current rehab plan of care.
[2018-09-20] MEDS: MULTIVIT, IRON, MIN NO. 8, FA TABLET PO SCH (08:58)
[2018-09-20] MEDS: DIVALPROEX 125 MG TABLET.DR PO SCH ×3 (08:58→20:35)
[2018-09-20] MEDS: DONEPEZIL 10 MG TABLET PO SCH (08:58)
[2018-09-20] MEDS: FAMOTIDINE 20 MG TABLET PO SCH ×2 (08:58→16:36)
[2018-09-20] MEDS: SPIRONOLACTONE 25 MG TABLET PO SCH (08:58)
[2018-09-20] MEDS: LACOSAMIDE 50 MG TABLET PO SCH ×2 (08:58→16:36)
[2018-09-20] MEDS: MEMANTINE HCL 10 MG TABLET PO SCH (08:58)
[2018-09-20] MEDS: FINASTERIDE 5 MG TABLET PO SCH (08:58)
[2018-09-20] MEDS: NYSTATIN CREAM 30 GM TUBE TP SCH (09:00)
[2018-09-20] MEDS: MIRALAX 17 GM POWD.PACK PO SCH (09:00)
[2018-09-20] MEDS: CARVEDILOL 3.125 MG TABLET PO SCH ×2 (09:09→17:03)
[2018-09-20 09:36] VITALS: BP 111/53
--- NOTE | 2018-09-20 11:43 | NUR ---
Received patient sleeping in bed in stable condition. no behavioral problem noted. not in distress. Continue therapy for unsteady gait and ADL activities. will continue monitor
[2018-09-20] MEDS: ZIPRASIDONE MESYLATE 20 MG VIAL IM PRN (12:37)
--- NOTE | 2018-09-20 13:19 | NUR ---
INTERDISCIPLINARY TEAM CONFERENCE
[2018-09-20 17:03] VITALS: BP 133/52
[2018-09-20] MEDS: LOSARTAN POTASSIUM 25 MG TABLET PO SCH (17:03)
[2018-09-20] MEDS: TAMSULOSIN HCL 0.4 MG CAP.SR.24H PO SCH (17:03)
--- NOTE | 2018-09-20 18:10 | NUR ---
Patient seen and examined by CRISTÓBAL Bang with ordered discontinue oviedo catheter and monitoring urine output. will continue monitor
[2018-09-20] MEDS: ACETAMINOPHEN ES 500 MG TABLET PO PRN ×2 (18:47→23:24)
--- NOTE | 2018-09-20 19:53 | NUR ---
OOB in wheelchair upon rounds. AAOx1-2 confused and disoriented. Safety precautions maintained. On a 1:1 sitter.No acute distress noted. VSS. No signs of agitation at this time. Will monitor. Mills discontinued earlier this shift. Will monitor for voiding. Tolerated po meds well.
[2018-09-20 19:56] VITALS: BP 128/76
[2018-09-20] MEDS: MELATONIN 3 MG TABLET PO SCH (20:34)
[2018-09-20] MEDS: ATORVASTATIN 40 MG TABLET PO SCH (20:34)
[2018-09-20] MEDS: TRAZODONE 50 MG TABLET PO SCH (20:35)
--- NOTE | 2018-09-20 23:00 | NUR ---
Received report from outgoing nurse CATHY Agosto
[2018-09-21] MEDS ORDERED: OLANZAPINE 5 MG TABLET ONE (06:00)
[2018-09-21] MEDS: OLANZAPINE 5 MG TABLET PO SCH ×3 (06:07→21:29)
[2018-09-21 06:21] VITALS: BP 109/65
--- NOTE | 2018-09-21 06:50 | NUR ---
Shift End Report: VSS. Slept good. No complaint presented the whole night. All needs attended and met. No significant event reported. Continue current rehab plan of care.
[2018-09-21 08:39] VITALS: BP 126/57
[2018-09-21] MEDS: MIRALAX 17 GM POWD.PACK PO SCH (08:43)
[2018-09-21] MEDS: FAMOTIDINE 20 MG TABLET PO SCH ×2 (08:44→17:27)
[2018-09-21] MEDS: DONEPEZIL 10 MG TABLET PO SCH (08:44)
[2018-09-21] MEDS: SPIRONOLACTONE 25 MG TABLET PO SCH (08:44)
[2018-09-21] MEDS: CARVEDILOL 3.125 MG TABLET PO SCH ×2 (08:44→17:27)
[2018-09-21] MEDS: MEMANTINE HCL 10 MG TABLET PO SCH (08:44)
[2018-09-21] MEDS: FINASTERIDE 5 MG TABLET PO SCH (08:44)
[2018-09-21] MEDS: MULTIVIT, IRON, MIN NO. 8, FA TABLET PO SCH (08:44)
[2018-09-21] MEDS: LACOSAMIDE 50 MG TABLET PO SCH ×2 (08:46→17:26)
[2018-09-21] MEDS: NYSTATIN CREAM 30 GM TUBE TP SCH (08:49)
[2018-09-21] MEDS: DIVALPROEX 125 MG TABLET.DR PO SCH ×3 (08:57→20:27)
--- NOTE | 2018-09-21 09:15 | NUR ---
Received patient, awake, alert x2-3. With periods of confusion. Patient maybe impulsive and tries to ambulate by himself. Not in apparent pain. Not in any form of distress. Patient calm and pleasant upon approach.
--- NOTE | 2018-09-21 11:30 | NUR ---
Patient complained of hypogastric pain, no output since AM. Informed Bita Bang/MVA REACTOR OPERATOR and ordered straight cath and bladder scan after 6 hours. Initial bladder scan of 945ml.
[2018-09-21 11:50] LABS: BASOPHILS % (AUTO) 0.5 % (0.0-2.0); EOSINOPHILS # (AUTO) 0.2 K/uL (0.0-0.7); EOSINOPHILS % (AUTO) 2.6 % (0.0-7.0); HEMATOCRIT 33.7 % (36.7-47.1); HEMOGLOBIN 11.4 g/dL (12.5-16.3); LYMPHOCYTES % (AUTO) 24.4 % (20.5-51.5); MEAN CORPUSCULAR HEMOGLOBIN 30.6 uug (23.8-33.4); MEAN CORPUSCULAR HGB CONC 34 g/dL (32.5-36.3); MEAN CORPUSCULAR VOLUME 90.9 fL (73.0-96.2); MONOCYTES # (AUTO) 0.7 K/uL (2.0-10.0); MONOCYTES % (AUTO) 8.6 % (0.0-11.0); NEUTROPHILS # (AUTO) 5.2 K/uL (1.8-8.9); NEUTROPHILS % (AUTO) 63.9 % (38.5-71.5); PLATELET COUNT (AUTO) 300 K/uL (152-348); RED BLOOD CELL COUNT(AUTO) 3.71 MIL/uL (4.06-5.63); WHITE BLOOD COUNT (AUTO) 8.1 K/uL (3.6-10.2)
--- NOTE | 2018-09-21 11:50 | NUR ---
Straight cath done, output of 500ml. Will continue to monitor, patient complaint with care.
[2018-09-21] MEDS: QUETIAPINE FUMARATE 25 MG TABLET PO PRN (11:54)
[2018-09-21 11:55] LABS: CARBON DIOXIDE 31 mmol/L (21-32); CHLORIDE 100 mmol/L (98-107); GLUCOSE 98 mg/dL (74-106); UREA NITROGEN, BLOOD 19 mg/dL (7-18)
[2018-09-21 12:11] LABS: *BILIRUBIN,URIN NEGATIVE (NEGATIVE); *BLOOD, URINE NEGATIVE (NEGATIVE); *CLARITY,URINE CLEAR (CLEAR); *COLOR,URINE YELLOW (YELLOW); *KETONES,URINE NEGATIVE (NEGATIVE); *UROBILINOGEN,URINE 0.2 E.U./dl (NORMAL); LEUKOCYTE ESTERASE ,URINE NEGATIVE (NEGATIVE); NITRITE, URINE POSITIVE (NEGATIVE); PH,URINE 5.5 (5.0-8.0); UGLUCOSE NEGATIVE (NEGATIVE)
[2018-09-21 12:21] LABS: BACTERIA,URINE MANY /HPF (NONE SEEN); RBC,URINE NONE SEEN /HPF (0-3); SQUAMOUS EPITHELIAL CELL,UR FEW /HPF (NONE SEEN); WBC,URINE 0-3 /HPF (0-3)
[2018-09-21 15:52] VITALS: BP 122/69
[2018-09-21] MEDS ORDERED: DIVALPROEX 125 MG TABLET.DR PO SCH (17:18)
[2018-09-21] MEDS: LOSARTAN POTASSIUM 25 MG TABLET PO SCH (17:27)
[2018-09-21] MEDS: TAMSULOSIN HCL 0.4 MG CAP.SR.24H PO SCH (17:27)
--- NOTE | 2018-09-21 18:36 | NUR ---
Bladder scan done with residual of 446ml, no pain noted. Informed Bita AMBROCIO and said to do bladder scan before bedtime and to update her for possible Mills insertion.
[2018-09-21 19:38] VITALS: BP 111/64
[2018-09-21] MEDS: MELATONIN 3 MG TABLET PO SCH (20:27)
[2018-09-21] MEDS: GABAPENTIN 100 MG CAPSULE PO SCH (20:27)
[2018-09-21] MEDS: ATORVASTATIN 40 MG TABLET PO SCH (20:27)
[2018-09-21] MEDS: TRAZODONE 50 MG TABLET PO SCH (20:27)
--- NOTE | 2018-09-21 21:19 | NUR ---
Received pt resting in bed. AAO x1. No acute distress noted. 1:1 sitter at bedside for safety. Pt had x1 BM and voided small amount x1. Pt has a standing order for bladder scan at bedtime and to insert oviedo catheter if retaining >300 mL of urine. At 2044, pt abdomen area appears to be distended and discomfort was noted when touched. Bladder scan shown that pt is retaining 709 mL. Oviedo catheter was inserted at 2109, output was 500 mL. Clear yellow colored urine noted. Pt stated to be feeling better after that. Safety measures maintained. Will continue to monitor.
[2018-09-22] MEDS: OLANZAPINE 5 MG TABLET PO SCH ×3 (06:19→21:00)
[2018-09-22 06:57] VITALS: BP 111/67
[2018-09-22 08:00] VITALS: BP 111/60
[2018-09-22] MEDS: CARVEDILOL 3.125 MG TABLET PO SCH ×2 (08:00→17:30)
[2018-09-22] MEDS: DONEPEZIL 10 MG TABLET PO SCH (08:21)
[2018-09-22] MEDS: MULTIVIT, IRON, MIN NO. 8, FA TABLET PO SCH (08:21)
[2018-09-22] MEDS: LACOSAMIDE 50 MG TABLET PO SCH ×2 (08:21→17:26)
[2018-09-22] MEDS: SPIRONOLACTONE 25 MG TABLET PO SCH (08:21)
[2018-09-22] MEDS: FINASTERIDE 5 MG TABLET PO SCH (08:21)
[2018-09-22] MEDS: FAMOTIDINE 20 MG TABLET PO SCH ×2 (08:21→17:26)
[2018-09-22] MEDS: DIVALPROEX 125 MG TABLET.DR PO SCH ×3 (08:21→20:57)
[2018-09-22] MEDS: MEMANTINE HCL 10 MG TABLET PO SCH (08:21)
[2018-09-22] MEDS: MIRALAX 17 GM POWD.PACK PO SCH (08:23)
[2018-09-22] MEDS: NYSTATIN CREAM 30 GM TUBE TP SCH (08:23)
[2018-09-22 16:00] VITALS: BP 122/69
[2018-09-22] MEDS: TAMSULOSIN HCL 0.4 MG CAP.SR.24H PO SCH (17:26)
[2018-09-22] MEDS: LOSARTAN POTASSIUM 25 MG TABLET PO SCH (17:32)
[2018-09-22] MEDS: QUETIAPINE FUMARATE 25 MG TABLET PO PRN (19:09)
[2018-09-22 20:48] VITALS: BP 124/72
[2018-09-22] MEDS: GABAPENTIN 100 MG CAPSULE PO SCH (20:57)
[2018-09-22] MEDS: ATORVASTATIN 40 MG TABLET PO SCH (20:57)
[2018-09-22] MEDS: TRAZODONE 50 MG TABLET PO SCH (20:58)
[2018-09-22] MEDS: MELATONIN 3 MG TABLET PO SCH (20:58)
--- NOTE | 2018-09-22 21:15 | NUR ---
Received pt resting in bed. AAO x1. Sitter at bedside for safety. No acute distress noted. Denies pain/ discomfort. Pt noted to be ambulating in the hallway with the sitter. Mills catheter draining well with clear yellow colored urine. Due meds given as ordered. Safety measures maintained. Will continue to monitor.
[2018-09-23] MEDS: ACETAMINOPHEN ES 500 MG TABLET PO PRN ×2 (01:02→20:36)
[2018-09-23 05:00] VITALS: BP 100/52
[2018-09-23] MEDS: OLANZAPINE 5 MG TABLET PO SCH ×3 (05:49→21:31)
--- NOTE | 2018-09-23 07:39 | NUR ---
Patient noted resting in bed with eyes closed, 1 to 1 sitter noted, call light in reach, bed locked and in lowest position, no complaints of pain, no signs of distress noted, call light in reach, all needs met at this time
[2018-09-23 08:00] VITALS: BP 104/59
[2018-09-23] MEDS: CARVEDILOL 3.125 MG TABLET PO SCH ×2 (08:00→17:06)
[2018-09-23] MEDS: FINASTERIDE 5 MG TABLET PO SCH (09:15)
[2018-09-23] MEDS: SPIRONOLACTONE 25 MG TABLET PO SCH (09:16)
[2018-09-23] MEDS: NYSTATIN CREAM 30 GM TUBE TP SCH (09:16)
[2018-09-23] MEDS: FAMOTIDINE 20 MG TABLET PO SCH ×2 (09:16→16:48)
[2018-09-23] MEDS: MEMANTINE HCL 10 MG TABLET PO SCH (09:16)
[2018-09-23] MEDS: DONEPEZIL 10 MG TABLET PO SCH (09:16)
[2018-09-23] MEDS: LACOSAMIDE 50 MG TABLET PO SCH ×2 (09:16→16:48)
[2018-09-23] MEDS: MULTIVIT, IRON, MIN NO. 8, FA TABLET PO SCH (09:16)
[2018-09-23] MEDS: DIVALPROEX 125 MG TABLET.DR PO SCH ×3 (09:16→20:35)
[2018-09-23] MEDS: MIRALAX 17 GM POWD.PACK PO SCH (09:17)
[2018-09-23 15:41] VITALS: BP 110/66
[2018-09-23] MEDS: LOSARTAN POTASSIUM 25 MG TABLET PO SCH (17:07)
[2018-09-23] MEDS: TAMSULOSIN HCL 0.4 MG CAP.SR.24H PO SCH (17:08)
[2018-09-23] MEDS: QUETIAPINE FUMARATE 25 MG TABLET PO PRN (19:06)
[2018-09-23 20:12] VITALS: BP 102/69
[2018-09-23] MEDS: TRAZODONE 50 MG TABLET PO SCH (20:35)
[2018-09-23] MEDS: MELATONIN 3 MG TABLET PO SCH (20:35)
[2018-09-23] MEDS: ATORVASTATIN 40 MG TABLET PO SCH (20:35)
[2018-09-23] MEDS: GABAPENTIN 100 MG CAPSULE PO SCH (20:35)
[2018-09-24 04:02] VITALS: BP 110/67
--- NOTE | 2018-09-24 06:30 | NUR ---
Patient resting comfortably in bed with eyes closed, 1 to 1 sitter at the bedside, call light in reach, bed locked and in lowest position, no complaints of pain, no signs of distress noted, all needs met at this time
[2018-09-24] MEDS: OLANZAPINE 5 MG TABLET PO SCH ×3 (06:35→21:08)
[2018-09-24] MEDS: MIRALAX 17 GM POWD.PACK PO SCH (08:27)
[2018-09-24] MEDS: LACOSAMIDE 50 MG TABLET PO SCH ×2 (08:28→16:58)
[2018-09-24] MEDS: FAMOTIDINE 20 MG TABLET PO SCH ×2 (08:28→16:58)
[2018-09-24] MEDS: DONEPEZIL 10 MG TABLET PO SCH (08:28)
[2018-09-24] MEDS: SPIRONOLACTONE 25 MG TABLET PO SCH (08:28)
[2018-09-24] MEDS: DIVALPROEX 125 MG TABLET.DR PO SCH ×3 (08:29→20:13)
[2018-09-24] MEDS: MEMANTINE HCL 10 MG TABLET PO SCH (08:29)
[2018-09-24] MEDS: MULTIVIT, IRON, MIN NO. 8, FA TABLET PO SCH (08:29)
[2018-09-24] MEDS: FINASTERIDE 5 MG TABLET PO SCH (08:30)
[2018-09-24] MEDS: NYSTATIN CREAM 30 GM TUBE TP SCH (08:31)
[2018-09-24 09:00] VITALS: BP 113/66
--- NOTE | 2018-09-24 09:00 | NUR ---
Received patient in bed, alert awake x1-2. With periods of confusion and tries to take out Mills catheter. Not in apparent pain. No in any form of distress. With intact and draining Mills with yellow colored urine.
[2018-09-24] MEDS: CARVEDILOL 3.125 MG TABLET PO SCH ×2 (11:03→17:04)
--- NOTE | 2018-09-24 13:30 | NUR ---
Up with occupational therapy, tolerating well. Pleasant on approach and compliant with care. Ambulate with front wheel walker. Seen by INTELLIGENCE CLERK/ ID informed about patient's cough no new orders at this time.
[2018-09-24 16:30] VITALS: BP 107/66
[2018-09-24] MEDS: TAMSULOSIN HCL 0.4 MG CAP.SR.24H PO SCH (17:03)
[2018-09-24] MEDS: LOSARTAN POTASSIUM 25 MG TABLET PO SCH (17:05)
[2018-09-24 19:31] VITALS: BP 122/67
--- NOTE | 2018-09-24 20:00 | NUR ---
Received pt lying on bed, awake. Denies pain, not in acute distress. 1 on 1 sitter for safety maintained. Will continue with current plan of care.
[2018-09-24] MEDS: MELATONIN 3 MG TABLET PO SCH (20:13)
[2018-09-24] MEDS: ATORVASTATIN 40 MG TABLET PO SCH (20:13)
[2018-09-24] MEDS: TRAZODONE 50 MG TABLET PO SCH (20:13)
[2018-09-24] MEDS: ACETAMINOPHEN ES 500 MG TABLET PO PRN (20:16)
[2018-09-24] MEDS: GABAPENTIN 100 MG CAPSULE PO SCH (20:48)
[2018-09-25 05:20] VITALS: BP 132/71
[2018-09-25] MEDS: OLANZAPINE 5 MG TABLET PO SCH ×2 (06:08→13:23)
[2018-09-25] MEDS: CARVEDILOL 3.125 MG TABLET PO SCH (08:00)
[2018-09-25 08:33] VITALS: BP 99/62
[2018-09-25] MEDS: LACOSAMIDE 50 MG TABLET PO SCH (08:52)
[2018-09-25] MEDS: FINASTERIDE 5 MG TABLET PO SCH (08:54)
[2018-09-25] MEDS: MULTIVIT, IRON, MIN NO. 8, FA TABLET PO SCH (08:54)
[2018-09-25] MEDS: MEMANTINE HCL 10 MG TABLET PO SCH (08:55)
[2018-09-25] MEDS: DIVALPROEX 125 MG TABLET.DR PO SCH (08:55)
[2018-09-25] MEDS: DONEPEZIL 10 MG TABLET PO SCH (08:56)
[2018-09-25] MEDS: FAMOTIDINE 20 MG TABLET PO SCH (08:58)
[2018-09-25] MEDS: MIRALAX 17 GM POWD.PACK PO SCH (09:00)
[2018-09-25] MEDS: NYSTATIN CREAM 30 GM TUBE TP SCH (09:03)
[2018-09-25] MEDS: ACETAMINOPHEN ES 500 MG TABLET PO PRN (09:05)
[2018-09-25] MEDS: SPIRONOLACTONE 25 MG TABLET PO SCH (09:08)
--- NOTE | 2018-09-25 14:38 | NUR ---
Patient for discharge to [facility] around 250pm in stable condition. Report given to nurse Heydi. MD Kyle and MD Caicedo made aware.
[2018-09-25] MEDS ORDERED: GABA-532 PO (16:10)
[2018-09-25] MEDS ORDERED: DIVA125T2 PO ×2 (20:15→20:16)
[2018-09-27] MEDS ORDERED: TAMS-3 PO (11:03)
[2018-09-27] MEDS ORDERED: ATOR10TA PO (11:03)
== END 2018-09-25 15:00 | disposition short-term general hospital (02) | DRG 92 ==
PROVIDERS: ADMIT Physical Medicine & Rehabilitation Pain Medicine; ATTEND Physical Medicine & Rehabilitation Pain Medicine
DX: G92 Toxic encephalopathy (principal); D68.59 Other primary thrombophilia; E44.0 Moderate protein-calorie malnutrition; I50.22 Chronic systolic (congestive) heart failure; N39.0 Urinary tract infection, site not specified; B49 Unspecified mycosis; E78.5 Hyperlipidemia, unspecified; F01.50 Vascular dementia, unspecified severity, without behavioral disturbance, psychotic disturbance, mood disturbance, and anxiety; F41.9 Anxiety disorder, unspecified; I25.10 Atherosclerotic heart disease of native coronary artery without angina pectoris; I35.1 Nonrheumatic aortic (valve) insufficiency; K57.30 Diverticulosis of large intestine without perforation or abscess without bleeding; I11.0 Hypertensive heart disease with heart failure; Z90.79 Acquired absence of other genital organ(s); Z87.891 Personal history of nicotine dependence; Z91.14 Patient's other noncompliance with medication regimen; R33.9 Retention of urine, unspecified; Z91.19 Patient's noncompliance with other medical treatment and regimen; K21.9 Gastro-esophageal reflux disease without esophagitis; I25.5 Ischemic cardiomyopathy; T83.518D Infection and inflammatory reaction due to other urinary catheter, subsequent encounter; G62.9 Polyneuropathy, unspecified; Z22.322 Carrier or suspected carrier of Methicillin resistant Staphylococcus aureus; G40.909 Epilepsy, unspecified, not intractable, without status epilepticus; I25.2 Old myocardial infarction; M19.90 Unspecified osteoarthritis, unspecified site; R13.10 Dysphagia, unspecified; Z95.5 Presence of coronary angioplasty implant and graft; Z87.820 Personal history of traumatic brain injury; Z91.81 History of falling; M47.816 Spondylosis without myelopathy or radiculopathy, lumbar region
CPT/HCPCS: 36415; 70030-TC; 71045; 72110; 83605; 83735; 84100; 85025; 87077; 87086; 92507; 92523; 92610; 97110; 97112; 97116; 97165; 97530; 97535; A4663; A9150; C1758; J3486

== ENCOUNTER 2018-09-25 15:55 | Inpatient (IN) | payer MEDICARE, BC ==
[~2018-09-25] VITALS: Ht 170.2 cm; Wt 56.2 kg
[2018-09-25] MEDS ORDERED: GABA-532 PO (16:10)
--- NOTE | 2018-09-25 16:21 | NUR ---
Patient in from [facility] 1st floor. Patient arrives to room 320 AAOX1, 1:1 sitter at bedside. No iv access. Admitting physician notified of admission. vitals as follow: 97.1, HR of 59, 98% sat, on RA, rr of 18, and sbp of 108/64. Patient able to follow commands. Awaiting Md call back for orders.
[2018-09-25 16:41] VITALS: BP 108/64
[2018-09-25] MEDS ORDERED: GABAPENTIN 50 MG PO PRN (17:45)
[2018-09-25] MEDS ORDERED: QUETIAPINE FUMARATE 25 MG TABLET PO PRN (17:45)
[2018-09-25] MEDS ORDERED: GABAPENTIN 50 MG PO SCH (18:00)
--- NOTE | 2018-09-25 19:30 | NUR ---
RECEIVED PT AWAKE, ALERT AND ORIENTEDX2. PT SHOWS NO SIGNS OF ACUTE DISTRESS. FARFAN CATHETER INTACT. SAFETY AND COMFORT PROVIDED. WILL CONTINUE TO MONITOR.
[2018-09-25 20:00] VITALS: BP 138/84
[2018-09-25] MEDS ORDERED: CEFTRIAXONE 1 G in IV DEXTROSE 5% 50 ML IV SCH (20:00)
[2018-09-25] MEDS ORDERED: DIVA125T2 PO ×2 (20:15→20:16)
[2018-09-25] MEDS: LOSARTAN POTASSIUM 25 MG TABLET PO SCH (20:19)
[2018-09-25] MEDS: CARVEDILOL 3.125 MG TABLET PO SCH (20:19)
[2018-09-25] MEDS: DIVALPROEX 125 MG TABLET.DR PO SCH (20:52)
[2018-09-25] MEDS: LACOSAMIDE 50 MG TABLET PO SCH (20:52)
[2018-09-25] MEDS: TAMSULOSIN HCL 0.4 MG CAP.SR.24H PO SCH (20:52)
[2018-09-25] MEDS: GABAPENTIN 100 MG CAPSULE PO SCH (20:52)
[2018-09-25] MEDS: TRAZODONE 50 MG TABLET PO SCH (20:52)
[2018-09-25] MEDS: ATORVASTATIN 40 MG TABLET PO SCH (20:52)
[2018-09-25] MEDS: MELATONIN 3 MG TABLET PO SCH (20:55)
[2018-09-25] MEDS: OLANZAPINE ZYDIS 5 MG TAB.RAPDIS PO SCH (21:53)
[2018-09-25] MEDS: ACETAMINOPHEN 325 MG TABLET PO PRN (22:49)
[2018-09-26 06:14] VITALS: BP 125/62
[2018-09-26] MEDS: OLANZAPINE ZYDIS 5 MG TAB.RAPDIS PO SCH ×3 (06:16→22:08)
--- NOTE | 2018-09-26 06:26 | NUR ---
PT SLEPT THROUGHOUT THE SHIFT. SITTER AT BEDSIDE FOR SAFETY.PRESCRIBED MEDICATION GIVEN AND PT TOLERATED IT WELL. PT TURNED AND REPOSITIONED. IV INTACT AND FARFAN INTACT. SAFETY AND COMFORT PROVIDED. ALL NEEDS ARE MET WILL ENDORSE ACCORDINGLY TO INCOMING NURSE FOR CONTINUITY OF CARE.
--- NOTE | 2018-09-26 07:38 | NUR ---
Patient in Bed awake and verbally responsive. No signs of Respiratory distress noted. No SOB. No complain of Pain or Discomfort. Patient with 1 on 1 sitter at bedside. Will continue to monitor.
[2018-09-26] MEDS: CARVEDILOL 3.125 MG TABLET PO SCH ×2 (08:00→17:22)
[2018-09-26 08:20] VITALS: BP 113/64
[2018-09-26] MEDS: FINASTERIDE 5 MG TABLET PO SCH (08:31)
[2018-09-26] MEDS: SPIRONOLACTONE 25 MG TABLET PO SCH (08:31)
[2018-09-26] MEDS: LACOSAMIDE 50 MG TABLET PO SCH ×2 (08:31→22:07)
[2018-09-26] MEDS: DIVALPROEX 125 MG TABLET.DR PO SCH ×2 (08:31→14:10)
[2018-09-26] MEDS: MIRALAX 17 GM POWD.PACK PO SCH (08:32)
[2018-09-26] MEDS: MEMANTINE HCL 10 MG TABLET PO SCH (08:32)
[2018-09-26] MEDS: MULTIVIT, IRON, MIN NO. 8, FA TABLET PO SCH (08:32)
[2018-09-26] MEDS: FAMOTIDINE 20 MG TABLET PO SCH ×2 (08:32→17:22)
[2018-09-26] MEDS: DONEPEZIL 10 MG TABLET PO SCH (08:32)
[2018-09-26] MEDS: NYSTATIN CREAM 30 GM TUBE TP SCH (08:32)
[2018-09-26] MEDS ORDERED: Medication Not On Formulary EA (Multivitamins W-Minerals (Multivitamin With Minerals) 1 PO SCH (09:00)
[2018-09-26] MEDS ORDERED: ERGOCALCIFEROL 50,000 UNIT CAPSULE PO SCH (09:00)
[2018-09-26 09:44] VITALS: BP 100/51
[2018-09-26 14:20] VITALS: BP 102/61
[2018-09-26] MEDS: ACETAMINOPHEN 325 MG TABLET PO PRN (15:09)
[2018-09-26] MEDS: LOSARTAN POTASSIUM 25 MG TABLET PO SCH (17:22)
--- NOTE | 2018-09-26 18:40 | NUR ---
Patient in Bed, Awake and verbally Responsive with Confusion. No signs of Respiratory Distress noted. No SOB. Patient with Episode of Agitation, Seroquel given as ordered, MD made aware with New order of Depakote 125mg TID, Patient with 1:1 sitter. All needs attended and met. Will Endorse to Oncoming Nurse.
[2018-09-26 19:36] VITALS: BP 126/65
[2018-09-26] MEDS: SULFAMETH/TRIMETH 800/160 MG TABLET PO SCH (22:06)
[2018-09-26] MEDS: ATORVASTATIN 40 MG TABLET PO SCH (22:06)
[2018-09-26] MEDS: GABAPENTIN 100 MG CAPSULE PO SCH (22:07)
[2018-09-26] MEDS: TAMSULOSIN HCL 0.4 MG CAP.SR.24H PO SCH (22:07)
[2018-09-26] MEDS: MELATONIN 3 MG TABLET PO SCH (22:07)
[2018-09-26] MEDS: TRAZODONE 50 MG TABLET PO SCH (22:07)
[2018-09-27 05:00] VITALS: BP 111/62
--- NOTE | 2018-09-27 06:20 | NUR ---
Pt. calm and cooperative throughout night. Pt. took all prescribed medications. Pt. denies any pain, discomfort, SOB, or difficulty breathing. Mills catheter in place. IV in R forearm 22 gauge intact patent hep lock. Safety measures in place. Call light within reach. Will endorse to AM nurse
[2018-09-27] MEDS: OLANZAPINE ZYDIS 5 MG TAB.RAPDIS PO SCH ×2 (06:46→13:00)
[2018-09-27 07:43] VITALS: BP 101/56
--- NOTE | 2018-09-27 07:45 | NUR ---
Patient resting in Bed awake and verbally responsive. No signs of Respiratory distress noted. No SOB. No complain of Pain or Discomfort. Patient with 1 on 1 sitter at bedside. Will continue to monitor. Will continue with care plan.
[2018-09-27] MEDS: CARVEDILOL 3.125 MG TABLET PO SCH ×2 (08:00→17:11)
[2018-09-27] MEDS: SULFAMETH/TRIMETH 800/160 MG TABLET PO SCH (08:47)
[2018-09-27] MEDS: LACOSAMIDE 50 MG TABLET PO SCH (08:47)
[2018-09-27] MEDS: SPIRONOLACTONE 25 MG TABLET PO SCH (08:47)
[2018-09-27] MEDS: FINASTERIDE 5 MG TABLET PO SCH (08:47)
[2018-09-27] MEDS: DONEPEZIL 10 MG TABLET PO SCH (08:47)
[2018-09-27] MEDS: MIRALAX 17 GM POWD.PACK PO SCH (08:48)
[2018-09-27] MEDS: FAMOTIDINE 20 MG TABLET PO SCH ×2 (08:48→17:13)
[2018-09-27] MEDS: MEMANTINE HCL 10 MG TABLET PO SCH (08:48)
[2018-09-27] MEDS: MULTIVIT, IRON, MIN NO. 8, FA TABLET PO SCH (08:48)
[2018-09-27] MEDS: NYSTATIN CREAM 30 GM TUBE TP SCH (08:51)
[2018-09-27] MEDS: DIVALPROEX 125 MG TABLET.DR PO SCH ×4 (08:58→17:12)
[2018-09-27] MEDS ORDERED: ATOR10TA PO (11:03)
[2018-09-27] MEDS ORDERED: TAMS-3 PO (11:03)
[2018-09-27 11:47] VITALS: BP 90/47
[2018-09-27 15:56] VITALS: BP 106/55
[2018-09-27 17:12] VITALS: BP 106/55
[2018-09-27] MEDS: LOSARTAN POTASSIUM 25 MG TABLET PO SCH (17:12)
--- NOTE | 2018-09-27 18:30 | NUR ---
Patient in Bed, Awake and verbally Responsive with Confusion. No signs of Respiratory Distress noted. No SOB. Patient with Episode of Agitation, Seroquel given as ordered, Patient with 1:1 sitter. All needs attended and met. Will Endorse to Oncoming Nurse.Will continue with care plan.
--- NOTE | 2018-09-27 19:30 | NUR ---
Received patient in bed awake, A&Ox2. Not in distress at this time. w/ 1:1 sitter at bedside. Patient is for discharge today at [place]
--- NOTE | 2018-09-27 20:00 | NUR ---
Patient was picked up by ambulance around 1958 for discharge to [facility] Patient in stable condition. All belongings was taken w/ patient. Discharge protocol followed.
== END 2018-09-27 21:20 | DRG 689 ==
LOC: MEDSURG3 15:55
PROVIDERS: ADMIT Internal Medicine; ATTEND Internal Medicine
DX: N39.0 Urinary tract infection, site not specified (principal); G92 Toxic encephalopathy; E43 Unspecified severe protein-calorie malnutrition; D68.59 Other primary thrombophilia; J98.11 Atelectasis; I50.22 Chronic systolic (congestive) heart failure; Z68.1 Body mass index [BMI] 19.9 or less, adult; F01.50 Vascular dementia, unspecified severity, without behavioral disturbance, psychotic disturbance, mood disturbance, and anxiety; I25.2 Old myocardial infarction; I25.10 Atherosclerotic heart disease of native coronary artery without angina pectoris; N40.0 Benign prostatic hyperplasia without lower urinary tract symptoms; Z90.79 Acquired absence of other genital organ(s); E78.5 Hyperlipidemia, unspecified; K57.30 Diverticulosis of large intestine without perforation or abscess without bleeding; I70.0 Atherosclerosis of aorta; I35.1 Nonrheumatic aortic (valve) insufficiency; Z87.440 Personal history of urinary (tract) infections; Z95.5 Presence of coronary angioplasty implant and graft; Z87.891 Personal history of nicotine dependence; Z93.6 Other artificial openings of urinary tract status; G43.909 Migraine, unspecified, not intractable, without status migrainosus; G47.00 Insomnia, unspecified; F41.9 Anxiety disorder, unspecified; F32.9 Major depressive disorder, single episode, unspecified; D64.9 Anemia, unspecified; Z86.73 Personal history of transient ischemic attack (TIA), and cerebral infarction without residual deficits
CPT/HCPCS: A4663; G0378; J0696; J7040; J7060